=== PATIENT | female | born 1990 | race Caucasian/White ===

== ENCOUNTER → 2018-10-14 13:48 | Outpatient (CLI) | payer OTHER, SELFPAY ==
[2018-10-14 14:48] LABS: hCG Titer Quant., Serum 21141 mIU/mL (1-3)
== END ==
PROVIDERS: Nurse Practitioner Women's Health; Referring Provider Obstetrics & Gynecology; Visit Provider Obstetrics & Gynecology
DX: O20.0 Threatened abortion (principal)
CPT/HCPCS: 36415; 84702

== ENCOUNTER → 2018-11-07 16:22 | Outpatient (CLI) | payer OTHER, SELFPAY ==
[2018-11-07 21:10] LABS: Chlamydia Trachomatis by PCR Negative (Negative); Neisserai gonorrhoeae by PCR Negative (Negative); Probe Check PASS; Sample Adequacy Control PASS; Specimen Processing Control PASS
[2018-11-13 13:35] LABS: HPV Reflexed? NOT INDICATED
== END ==
PROVIDERS: Referring Provider Obstetrics & Gynecology; Visit Provider Obstetrics & Gynecology
DX: Z34.90 Encounter for supervision of normal pregnancy, unspecified, unspecified trimester (principal); Z12.4 Encounter for screening for malignant neoplasm of cervix
CPT/HCPCS: 87077; 87086; 87088; 87491; 87591; 88175; G0145

== ENCOUNTER → 2018-11-09 15:04 | Outpatient (CLI) | payer OTHER, SELFPAY ==
[2018-11-09 15:32] LABS: Absolute Lymphocyte Count 1.54 X10^3/uL (0.83-4.51); Absolute Neutrophil Count 5.1 X10^3/uL (2.0-7.7); Basophil# 0.02 X10^3/uL; Basophil% 0.3 % (0-1); Eosinophil# 0.14 X10^3/uL; Eosinophils% 1.9 % (0-5); Hematocrit 40.5 % (37-47); Hemoglobin 13.4 g/dL (12.0-15.0); Lymphocyte # 1.54 X10^3/ul (4.0); Mean Corp Hgb Conc 33.1 g/dL (32-36); Mean Corpuscular Volume 90.8 fL (81-99); Mean Platelet Vol. 9.6 fl (6.2-12.0); Monocyte# 0.55 X10^3/uL; Monocyte% 7.5 % (0-10); NRBC Flagged by Analyzer 0 % (0-5); Neutrophil # 5.05 X10^3/uL (2.7-7.7); POSITIVE MORPHOLOGY YES; Platelet Count 207 K/mm3 (150-450); RBC Distribution Width CV 12.7 % (11.6-14.6); RBC Distribution Width SD 41.6 fl (35.1-43.9); Red Blood Count 4.46 M/mm3 (4.2-5.4); White Blood Count 7.3 K/mm3 (4.4-11.0)
[2018-11-09 15:34] LABS: Differential Indicated SCAN CRITERIA MET
[2018-11-09 16:00] LABS: Differential Comment SCANNED
[2018-11-09 16:47] LABS: HIV - WCH Non-Reactive (Nonreactive); Hepatitis B Surface Antigen Non-Reactive (Nonreactive)
[2018-11-11 01:39] LABS: Rapid Plasmin Reagin (RPR) NONREACTIVE (NONREACTIVE)
== END ==
PROVIDERS: Referring Provider Obstetrics & Gynecology; Visit Provider Obstetrics & Gynecology
DX: Z34.81 Encounter for supervision of other normal pregnancy, first trimester (principal); Z31.430 Encounter of female for testing for genetic disease carrier status for procreative management
CPT/HCPCS: 85025; 86592; 86703; 86762; 86850; 86900; 86901; 87340

== ENCOUNTER → 2019-03-02 16:27 | Outpatient (CLI) | payer OTHER, SELFPAY ==
[2019-03-02 15:35] VITALS: BMI 20.5
[2019-03-02 17:00] LABS: Absolute Lymphocyte Count 1.45 X10^3/uL (0.83-4.51); Absolute Neutrophil Count 5.8 X10^3/uL (2.0-7.7); Basophil# 0.01 X10^3/uL; Basophil% 0.1 % (0-1); Eosinophil# 0.05 X10^3/uL; Eosinophils% 0.6 % (0-5); Hematocrit 36.7 % (37-47); Hemoglobin 12.2 g/dL (12.0-15.0); Lymphocyte # 1.45 X10^3/ul (4.0); Lymphocyte % 18.4 % (19-41); Mean Corp Hgb Conc 33.2 g/dL (32-36); Mean Corpuscular Hgb 32.4 pg (27.0-32.0); Mean Corpuscular Volume 97.3 fL (81-99); Mean Platelet Vol. 10.2 fl (6.2-12.0); Monocyte# 0.56 X10^3/uL; Monocyte% 7.1 % (0-10); NRBC Flagged by Analyzer 0 % (0-5); Neutrophil # 5.78 X10^3/uL (2.7-7.7); Neutrophil % 73.4 % (47-70); Platelet Count 184 K/mm3 (150-450); RBC Distribution Width CV 13.4 % (11.6-14.6); RBC Distribution Width SD 47.7 fl (35.1-43.9); Red Blood Count 3.77 M/mm3 (4.2-5.4); White Blood Count 7.9 K/mm3 (4.4-11.0)
[2019-03-02 18:09] LABS: Glucose Challenge Gest 1H 50g 86 mg/dL (70-140)
[2019-03-03 08:40] LABS: Hepatitis B Surface Antigen Non-Reactive (Nonreactive)
== END ==
PROVIDERS: Referring Provider Obstetrics & Gynecology; Visit Provider Obstetrics & Gynecology
DX: Z34.90 Encounter for supervision of normal pregnancy, unspecified, unspecified trimester (principal); Z3A.26 26 weeks gestation of pregnancy
CPT/HCPCS: 36415; 82950; 85025; 87340

== ENCOUNTER → 2019-05-19 16:06 | Outpatient (CLI) | payer OTHER, SELFPAY ==
[2019-05-19 14:40] VITALS: BMI 23.0
== END ==
PROVIDERS: Referring Provider Obstetrics & Gynecology; Visit Provider Obstetrics & Gynecology
DX: Z34.90 Encounter for supervision of normal pregnancy, unspecified, unspecified trimester (principal); Z3A.37 37 weeks gestation of pregnancy
CPT/HCPCS: 87081

== ENCOUNTER → 2019-06-08 16:31 | Outpatient (CLI) | payer OTHER, SELFPAY ==
[2019-06-08 09:48] VITALS: BMI 23.0
--- NOTE | 2019-06-08 16:33 | US_ITS ---
STUDY: SECOND AND THIRD TRIMESTER OBSTETRICAL ULTRASOUND - LIMITED REASON FOR EXAM: Female, 28 years old. Small for dates. Growth LMP: August 31, 2018. PRIOR ULTRASOUND: None. TECHNIQUE: Transabdominal TECHNICAL QUALITY: Adequate. FINDINGS: There is a single intrauterine fetus. The fetus is in a cephalic presentation. There is demonstrated cardiac activity with a heart rate of 161 bpm. There is a normal amniotic fluid volume. The largest amniotic fluid pocket measures 4.51 cm. The amniotic fluid index (BROWN) is 11.88 cm. The placenta is fundal and posterior malleoli There are Grade 2 placental changes. The cervix obscured. BIOMETRY: BPD: 9.15 cm: 37 weeks, 1 days HC: 34.16 cm: 39 weeks, 3 days AC: 37.75 cm: 41 weeks, 5 days FL: 7.46 cm: 38 weeks, 2 days Age by LMP: 40 weeks, 1 days. TALIA by LMP: June 07, 2019.. age by current US: 39 weeks, 1 days. TALIA by current US: June 14, 2019. Estimated weight: 3986 grams, +/- 532 grams. US/OB Limited With Biometrics IMPRESSION: 1. Live single intrauterine in 39 weeks 1 day. TALIA is June 14, 2019. 2. EFW of 3986 g. 3. BROWN of 11.8 cm 4. Fundal and posterior placenta. 5. Vertex presentation. Electronically Signed: Chris Noel DO at 17:34 EDT Tel [phone], Service support ,
== END ==
PROVIDERS: Visit Provider Obstetrics & Gynecology
DX: O26.849 Uterine size-date discrepancy, unspecified trimester (principal); Z3A.00 Weeks of gestation of pregnancy not specified
CPT/HCPCS: 76816

== ENCOUNTER 2019-06-14 19:04 | Inpatient (IN) | payer OTHER, SELFPAY ==
[2019-04-20 15:37] VITALS: BMI 23.0
[2019-06-08 09:48] VITALS: BMI 23.0
[2019-06-14] VITALS (25 sets, daily range): BP systolic 115–133; BP diastolic 64–85; PULSE 75–92; TEMP 36.2–37.1; O2SAT 90–100; BMI 23.4
[2019-06-14] MEDS: Lactated Ringers 1,000 ML 50 ML IV (19:45)
[2019-06-14 20:10] LABS: Absolute Lymphocyte Count 1.58 X10^3/uL (0.83-4.51); Absolute Neutrophil Count 7.2 X10^3/uL (2.0-7.7); Basophil# 0.01 X10^3/uL; Basophil% 0.1 % (0-1); Eosinophil# 0.02 X10^3/uL; Eosinophils% 0.2 % (0-5); Hematocrit 39.5 % (37-47); Hemoglobin 13.5 g/dL (12.0-15.0); Lymphocyte # 1.58 X10^3/ul (4.0); Lymphocyte % 16.9 % (19-41); Mean Corp Hgb Conc 34.2 g/dL (32-36); Mean Corpuscular Hgb 31.5 pg (27.0-32.0); Mean Corpuscular Volume 92.1 fL (81-99); Mean Platelet Vol. 11.6 fl (6.2-12.0); Monocyte# 0.54 X10^3/uL; Monocyte% 5.8 % (0-10); NRBC Flagged by Analyzer 0 % (0-5); Neutrophil % 76.8 % (47-70); Platelet Count 196 K/mm3 (150-450); RBC Distribution Width SD 43.5 fl (35.1-43.9); Red Blood Count 4.29 M/mm3 (4.2-5.4); White Blood Count 9.4 K/mm3 (4.4-11.0)
[2019-06-14] MEDS: miSOPROStol 25 MCG TABLET VAGINAL (20:45)
[2019-06-14] MEDS: Lactated Ringers 500 ML 999 ML IV (22:50)
[2019-06-14] MEDS: fentaNYL-bupivacaine (epidural) 100 ML BAG EPIDURAL (23:43)
[2019-06-15] VITALS (29 sets, daily range): BP systolic 102–129; BP diastolic 59–85; PULSE 66–88; RESP 16–18; TEMP 36.4–37; O2SAT 93–99
[2019-06-15] MEDS: Lactated Ringers 500 ML 999 ML IV (00:25)
--- NOTE | 2019-06-15 00:56 | PCM.HPOB.BLA ---
- Problem List (1) Post-dates Status: Acute (2) Gluten intolerance Status: Acute (3) History of depression Status: Acute Comment: no med currently. 2/6 doing well (4) Status: Acute Qualifiers: Comment: declines ntd screen. Genetic low risk, carrier neg. anatomy normal (5) Rubella non-immune status, antepartum Status: Acute Comment: avoidance in preganncy and mmr vaccine (6) Supervision of normal Status: Acute Qualifiers: Comment: PRR TALIA 06/07/19, girl (name surprise), Spouse: Artemio (7) Uterine size-date discrepancy in third trimester Status: Acute Comment: growth us today History and Physical Date of Admission: 06/14/19 Intake Vital Signs 06/08/19 BMI 23.0 06/08/19 Height 5 ft 6.5 in 06/08/19 Weight: 147 lb 06/08/19 BMI 23.3 06/08/19 BP 106/78 01/02/19 BMI 20.5 Intake Visit Reasons: 39 WK OB Chief Complaint: est ob Waxer Required: No Is patient in pain?: No Allergies No Known Allergies Allergy (Verified 06/08/19 09:47) Medications vitamin#30 30 mg iron-10 mg iron-folic acid 1 mg-omg3 capsule cap PO cap 11/07/18 history Confirmed 06/08/19 Last Menstral Period: 08/31/18 Zika: Zika virus screening: Negative : No PFSH PFSH Medical History Dairy product intolerance (Acute) Fibrocystic breast (Acute) Gluten intolerance (Acute) Surgical History H/O wisdom tooth extraction (Acute) History of bunionectomy of both great toes (Resolved) right toe surgery (Resolved) Family History Mother Breast cancer Grandmother Breast cancer Diabetes Grandfather Diabetes Hypertension Social History (Updated 06/08/19 @ 10:[address] 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 OB Visit TALIA Calculator Estimated Delivery Date Method Current WG Current Estimate 06/07/19 LMP (Certain) 40w 1d Other Estimates 06/08/19 Ultrasound #1 40w 0d Expected Delivery Route/Plan Labor Preferences- labor support person: Artemio pain management options preferred: epidural cut cord/dad catch: cord : yes PP control planned: considering IUD discussed possible routes of delivery and associated risks: special requests: Specific Issue/Plans flu vaccine: given tdap vaccine: given rhogam: na LARC form signed: yes movement and labor precautions reviewed. Problem list reviewed and updated with the most current plan of care details and appropriate orders placed. Relevant counseling for the gestational age provided. Continue routine care and follow up unless otherwise noted in visit notes/problem list details Initial Weight: 122 lb Date EGA Weight BP Urine Prot Glucose FHR FuHt Pres Dilation Effaced St Visit Note 12/05/18 13w 5d 125 lb (+3 lb) 120/58 Negative Negative 160 01/02/19 17w 5d 129 lb (+7 lb) 102/62 Negative Negative 150 no vb cramping 02/02/19 22w 1d 129 lb (+7 lb) 98/66 Negative Negative 140 no vb lof good fm no regular ctx 03/02/19 26w 1d 102/62 140 SM- no vb lof good fm no regular ctx. cbc gct tdap 03/23/19 29w 1d 140 lb 2 oz (+18 lb 2 oz) 118/74 152 28 MH-Good FM. No VB, LOF. CB classes scheduled. 04/07/19 31w 2d 141 lb (+19 lb) 118/62 160 31 SM- no vb lof good fm no regular ctx 04/20/19 33w 1d 145 lb (+23 lb) 120/64 Negative Negative 149 05/05/19 35w 2d 145 lb (+23 lb) 98/62 Negative Negative 145 35 SM- no vb lof good fm no regular ctx 05/19/19 37w 2d 144 lb (+22 lb) 110/60 Negative Negative 140 37 Cephalic 1 SM- no vb lof good fm no regular ctx. gbs done 05/26/19 38w 2d 147 lb 8 oz (+25 lb 8 oz) 104/62 Negative Negative 142 37 Cephalic 1 30 -3 MH-No Vb, LOF, reg ctx. Good FM 06/01/19 39w 1d 144 lb (+22 lb) 104/76 Negative Negative 151 38 Cephalic 1 MH-no Vb, LOF, CTX. Good FM 06/08/19 40w 1d 147 lb (+25 lb) 106/78 Negative Negative 135 37 Cephalic 1.5 50 -1 SM- no vb lof good fm no regular ctx, get growth scan today, reviewed fm precautions, if nl plan IOL 41 weeks Notes Visit Date: 06/08/19 ??No visit notes to display Visit Date: 06/01/19 ??No visit notes to display Visit Date: 05/26/19 ??No visit notes to display Visit Date: 05/19/19 ??No visit notes to display Visit Date: 05/05/19 ??No visit notes to display Visit Date: 04/20/19 ??No visit notes to display Visit Date: 04/07/19 ??No visit notes to display Visit Date: 03/23/19 ??No visit notes to display Visit Date: 03/02/19 ??No visit notes to display Visit Date: 02/02/19 ??No visit notes to display Visit Date: 01/02/19 ??no vb cramping ??Holli Desai MD on 01/03/19 Visit Date: 12/05/18 ??No visit notes to display ACOG First Trimester First Trimester: Desire for , Alcohol, Tobacco Cessation, Illicit/Recreational Drug/Substance Use, Intimate Partner Violence, Barriers to care, Unstable Housing, Communication Barriers, Environmental/Work Hazards, Anticipated Course of Care, Toxoplasmosis Precations, Use of Any medications, Sexual activity, Exercise, Dental Care, Sauna/Hot tub use, Seat Belt use, Childbirth classes/Hospital facilities, , Travel, Indications for US and Screening for Aneuploidy Second Trimester Second Trimester: Signs and Symptoms of Labor, Selecting a care provider, Reproductive Life Planning, Care Planning, Depression/Anxiety and Intimate Partner Violence; discussed Tobacco Cessation Third Trimester Third Trimester: Pain Management Plans, Labor support person(s), Immediate Larc, Movement Monitoring, Signs and Symptoms of Preeclampsia, Labor Signs, Feeding Yes , Family Medical Leave or Disability Forms and Depression Diagnostics Diagnostics Diagnostics Glucose 1 Hr 50 gm 86 mg/dL (70-140) 03/02/19 Hgb 12.2 g/dL (12.0-15.0) 03/02/19 Hct 36.7 % (37-47) L 03/02/19 Details: HIV: Urine Culture: Sequential Screen: NIPT Screen: ROS Const Reports system reviewed and no additional complaints, except as docu Card Reports system reviewed and no additional complaints, except as docu Resp Reports system reviewed and no additional complaints, except as docu GI Reports system reviewed and no additional complaints, except as docu, Reports nausea Reports system reviewed and no additional complaints, except as docu Musc Reports system reviewed and no additional complaints, except as docu Exam Const General: cooperative, healthy appearing, comfortable, anxious HENND Head: normal to inspection Nose: external nose normal Face and sinus: normal facial exam Neck Neck: normal visual inspection, full ROM, no lymphadenopathy Thyroid: thyroid normal Chest Chest palpation & inspection: normal inspection of the chest Resp Effort & Inspection: normal respiratory effort GI Inspection: normal to inspection Palpation: soft, other (gravid uterus) Other: vertex and appropriate size for gestational age Other: Cervical Exam: Extrem General: pedal edema Results POC Urinalysis 2 Dip (Clinic) Office Urine Glucose Negative Last Edit by Jeanne Mcclain on 06/08/19 09:49 Office Urine Protein Negative Last Edit by Jeanne Mcclain on 06/08/19 09:49 Assessment & Plan Problems 1. History of depression Z86.59 2. Rubella non-immune status, antepartum O99.89; Z28.3 3. Encounter for supervision of normal first in first trimester Z34.01 4. 40 weeks gestation of Z3A.40 5. Gluten intolerance K90.41 6. Uterine size-date discrepancy in third trimester O26.843 growth us today Patient presents IOL, plan management for , cytotec Pain management: Plans epidural. GBS negative. Management of any complications: None I have reviewed the [facility] and made any clinically relevant updates. Orders Orders: POC Urinalysis 2 Dip (Clinic) Today OB Limited With Biometrics Today O26.849 Coding Level of Care Code OB Routine Diagnoses History of depression Z86.59 Rubella non-immune status, antepartum O99.89; Z28.3 Encounter for supervision of normal first in first trimester Z34.01 ??Normal : normal first ??Trimester: first trimester 40 weeks gestation of Z3A.40 ??Weeks of gestation: 40 weeks Gluten intolerance K90.41 Uterine size-date discrepancy in third trimester O26.843 UPDATE- I have seen the patient and performed any clinically relevant updates to the history and physical exam. Holli Desai MD Essential Procedure Criteria Procedure Essential: Yes Criteria Note: On 05/02/2019 the [facility] ([facility]) Public Order signed by [facility] Director Valerie Devries M.D., regarding the Management of Non-Essential Surgeries and Procedures for the purpose of preserving Personal Protective Equipment (PPE) and critical hospital capacity and resources within [place] went into effect as of 05/03/2019 at 5:00PM. According to the [facility] Public Order: This action will remain in full force and effect until the State of Emergency declared by the Governor no longer exists or the Director of the [facility] rescinds or modifies this Order.. This [facility] order stated all non-essential or elective surgeries and procedures that utilize PPE should be delayed unless there is undue risk to the current or future health of a patient. After reviewing the aforementioned [facility] Public Order and the patients clinical case, I have determined that the scheduled procedure meets the criteria to go forward. Risk to Patient if Procedure Delayed: Threat of permanent dysfunction of an extremity or organ if delayed
--- NOTE | 2019-06-15 00:59 | OP.PCM_ITS ---
Problem List (1) Post-dates Status: Acute (2) Gluten intolerance Status: Acute (3) History of depression Status: Acute Comment: no med currently. 2/6 doing well (4) Status: Acute Qualifiers: Comment: declines ntd screen. Genetic low risk, carrier neg. anatomy normal (5) Rubella non-immune status, antepartum Status: Acute Comment: avoidance in preganncy and mmr vaccine (6) Supervision of normal Status: Acute Qualifiers: Comment: PRR TALIA 06/07/19, girl (name surprise), Spouse: Artemio (7) Uterine size-date discrepancy in third trimester Status: Acute Comment: growth us today Vaginal Delivery Maternal Presentation: Medically Indicated Induction iol postdates 41 weeks Method of Induction: Cytotec Medical Reason for Induction: Post term Amniotic Membrane Rupture Type: Artificial Amniotic Fluid Description: Clear Final TALIA: 06/07/19 Gestational age: 41 Weeks and 1 Days Date of Procedure: 06/15/19 Pre-Operative Diagnosis: iol postdates Post-Operative Diagnosis: same Surgery/ Procedure Performed: Spontaneous Vaginal Delivery Type of Anesthesia: Epidural Description of Procedure: Patient began pushing and delivered the head in the [ROSITA] presentation. The head was delivered atraumatically. The anterior and posterior shoulders delivered without complication followed by the rest of the and the infant was placed on the maternal abdomen. Delayed cord clamping was employed for approximately 60 seconds. Cord was clamped and cut and gentle traction was applied to the cord and the placenta delivered spontaneously immediately following it was noted to be intact with three-vessel cord. The perineum and vagina were inspected and noted to have a second-degree perineal laceration and a small laceration on the right labia. Both were repaired in the usual fashion with 3-0 Vicryl rapide. EBL was 400 cc. Patient and tolerated delivery well. Presentation: ROSITA Placental Delivery Description: Spontaneous Placenta Disposition: [facility] Cord Vessel Description: 3 Vessels Cord Entanglement: None Estimated Blood Loss: 400 A gender: Female Episiotomy Description: None Laceration: Perineal Extension/lac, 2nd degree Medications given after delivery: IV Pitocin Complications: None Multi Select Codes - Urinary/Genital Urinary/Genital CPT Codes: 81033 Vaginal Delivery [facility]
[2019-06-15] MEDS: Oxytocin 30 units/NS 500 ml 30 UNITS/500 ML IV.SOLN 334 UNITS IV (01:31)
[2019-06-15] MEDS: 0.9% Saline Lock 10 ML Syringe IV (04:09)
[2019-06-15] MEDS: Naproxen 250 MG Tablet 500 MG PO ×2 (09:52→22:56)
--- NOTE | 2019-06-15 12:56 | DCINST_ITS ---
Discharge Diet: No Restrictions Discharge Activity: Return to Normal Activity, May not drive while taking narcotic pain medications., May Shower May resume sexual activity in: 4-6 weeks Call your doctor if your incision/area has: Continuous Slow Oozing, Sudden Increased Bleeding, Increased Pain/ Swelling, Increased Redness, Foul Smelling Discharge Additional Instructions: If you experience any of the following, contact your healthcare provider. * Bleeding that soaks a pad every hour for 2 hours * Fever 100.4 or higher * Unrelieved incision or abdominal pain * Swelling, redness, discharge or bleeding from your incision or episiotomy site * Your incision begins to separate * Problems urinating (including inability to urinate or burning while urinating). * Visual changes * Severe headache * Flu-like symptoms * Pain or redness in one of both of your breasts * Pain, warmth, tenderness or swelling in your legs, especially the calf area * Frequent nausea and vomiting * Symptoms of depression or anxiety If you experience any of the following, call 911 or go to the nearest Emergency Room. * Chest pain * Problems breathing * Seizure activity * Partial or complete paralysis of a body part, slurred speech, weakness or drooping of the face, or a sudden inability to walk or hold your balance Allergies/Adverse Reactions: Allergies No Known Allergies Allergy (Verified 06/14/19 19:34) Medications to take at Discharge vitamin#30 30 mg iron-10 mg iron-folic acid 1 mg-omg3 capsule 1 cap PO DAILY cap 11/07/18 Please Follow Up With: Holli Desai MD - [phone] When: Call to make an appointment with your doctor in 6 weeks. If you had elevated Blood pressure or 4th degree laceration you will need to be seen in 2 weeks. Primary Care Physician: Care Physician,No Primary [Primary Care Provider] - Test Results: Test results from this visit will be discussed in further detail at your follow- up appointment, if applicable.
--- NOTE | 2019-06-15 12:56 | PCM.DCVAG ---
Discharge Diet: No Restrictions Discharge Activity: Return to Normal Activity, May not drive while taking narcotic pain medications., May Shower May resume sexual activity in: 4-6 weeks Call your doctor if your incision/area has: Continuous Slow Oozing, Sudden Increased Bleeding, Increased Pain/ Swelling, Increased Redness, Foul Smelling Discharge Additional Instructions: If you experience any of the following, contact your healthcare provider. Bleeding that soaks a pad every hour for 2 hours Fever 100.4 or higher Unrelieved incision or abdominal pain Swelling, redness, discharge or bleeding from your incision or episiotomy site Your incision begins to separate Problems urinating (including inability to urinate or burning while urinating). Visual changes Severe headache Flu-like symptoms Pain or redness in one of both of your breasts Pain, warmth, tenderness or swelling in your legs, especially the calf area Frequent nausea and vomiting Symptoms of depression or anxiety If you experience any of the following, call 911 or go to the nearest Emergency Room. Chest pain Problems breathing Seizure activity Partial or complete paralysis of a body part, slurred speech, weakness or drooping of the face, or a sudden inability to walk or hold your balance Allergies/Adverse Reactions: Allergies No Known Allergies Allergy (Verified 06/14/19 19:34) Medications to take at Discharge vitamin#30 30 mg iron-10 mg iron-folic acid 1 mg-omg3 capsule 1 cap PO DAILY cap 11/07/18 Please Follow Up With: Holli Desai MD - [phone] When: Call to make an appointment with your doctor in 6 weeks. If you had elevated Blood pressure or 4th degree laceration you will need to be seen in 2 weeks. Primary Care Physician: Care Physician,No Primary [Primary Care Provider] - Test Results: Test results from this visit will be discussed in further detail at your follow-up appointment, if applicable.
[2019-06-16] VITALS (7 sets, daily range): BP systolic 102–128; BP diastolic 56–84; PULSE 70–96; RESP 16–18; TEMP 36.3–36.8; O2SAT 98
--- NOTE | 2019-06-16 07:54 | PCM.PN.OB ---
Patient Problems: Active and Suspected Problems (Last Reviewed 06/08/19 @ 09:47 by Jeanne Mcclain) Post-dates (Acute) Subjective: doing well no complaints pain controlled no CP SOB N V ambulating well tolerating po lochia moderate, going well - Physical Exam Vitals/I&O's: Vital Signs Temp Pulse Resp BP Pulse Ox 97.6 F L 96 16 128/84 H 96 06/16/19 01:20 06/16/19 01:20 06/16/19 01:20 06/16/19 01:20 06/15/19 16:51 Oxygen Delivery Method Room Air Weight: 147 lb 7.828 oz Body Mass Index (BMI) 23.4 Intake and Output for Last 24 Hours 06/14/19 06/15/19 06/16/19 23:59 23:59 23:59 Intake Total 952.24 / 952.24 1078.69 / 1078.69 Output Total 400 / 400 900 / 900 Balance 552.24 / 552.24 178.69 / 178.69 General: Alert, Oriented x3 Current Medications Acetaminophen (Tylenol) 1,000 mg PO Q8H PRN PRN PRN Reason: Pain Score 1-3/10 Bisacodyl (Dulcolax) 10 mg RECTAL UD PRN PRN Reason: If no BM Dibucaine (Dibucaine) 1 applic TOPICAL TID PRN PRN; Protocol PRN Reason: Discomfort Hydrocortisone (Hytone) 1 applic TOPICAL TID PRN PRN; Protocol PRN Reason: Discomfort Methylergonovine Maleate (Methergine) 0.2 mg IM X1 PRN PRN Reason: Excess bleeding/uterine atony Naproxen (Naprosyn) 500 mg PO Q8H PRN PRN PRN Reason: Pain Score 1-3/10 Last Admin: 06/15/19 22:56 Dose: 500 mg Documented by: Ondansetron HCl (Zofran) 4 mg IV Q4H PRN PRN PRN Reason: Nausea Oxycodone HCl (Oxyir) 5 - 10 mg PO Q4H PRN PRN PRN Reason: Pain Score 4-10/10 Senna/Docusate Sodium (Senokot-S, Sahara-Colace) 1 - 2 tablet PO DAILY PRN PRN PRN Reason: Constipation Simethicone (Mylicon) 80 mg PO PCHS PRN PRN Reason: Indigestion/Stomach pain Sodium Chloride () 5 - 15 ml IV UD PRN PRN Reason: SALINE FLUSH Last Admin: 06/15/19 04:09 Dose: 10 ml Documented by: Medical Necessity - Tobacco Use Smoking Status: Never smoker Assessment/Plan All Active Problems (Last Reviewed 06/08/19 @ 09:47 by Jeanne Mcclain) Post-dates (Acute) Uterine size-date discrepancy in third trimester (Acute) History of depression (Acute) Rubella non-immune status, antepartum (Acute) Supervision of normal (Acute) (Acute) Gluten intolerance (Acute) 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 routine post delivery care 2. breast feeding- support given 3. rh positive 4. rubella non immune- give mmr
== END 2019-06-16 13:20 | disposition home or self-care (01) | DRG 806 ==
PROVIDERS: Admitting Provider Obstetrics & Gynecology; Referring Provider Obstetrics & Gynecology; Visit Provider Obstetrics & Gynecology
DX: O48.0 Post-term pregnancy (principal); K90.41 Non-celiac gluten sensitivity; Z37.0 Single live birth; O70.1 Second degree perineal laceration during delivery; O99.62 Diseases of the digestive system complicating childbirth; O26.843 Uterine size-date discrepancy, third trimester; Z3A.41 41 weeks gestation of pregnancy; O99.89 Other specified diseases and conditions complicating pregnancy, childbirth and the puerperium; Z28.3 Underimmunization status; Z86.59 Personal history of other mental and behavioral disorders
CPT/HCPCS: 59025; 59050; 85025; 86850; 86900; 86901; 99218; J7120; A4216; G0378

== ENCOUNTER 2019-06-19 14:30 | Outpatient (CLI) | payer OTHER, SELFPAY ==
[2019-06-14 19:29] VITALS: BMI 23.4
== END 2019-06-19 15:15 | disposition home or self-care (01) ==
LOC: WPOUT 15:11 → WP 15:11
PROVIDERS: Referring Provider Obstetrics & Gynecology; Visit Provider Obstetrics & Gynecology
DX: O92.79 Other disorders of lactation (principal)
CPT/HCPCS: 96158; 96159

== ENCOUNTER → 2019-07-28 12:16 | Outpatient (CLI) | payer OTHER, SELFPAY ==
[2019-07-28 11:53] VITALS: BMI 23.4
[2019-07-28 13:28] LABS: Absolute Lymphocyte Count 2.37 X10^3/uL (0.83-4.51); Absolute Neutrophil Count 5.1 X10^3/uL (2.0-7.7); Basophil# 0.03 X10^3/uL; Basophil% 0.4 % (0-1); Eosinophil# 0.17 X10^3/uL; Hematocrit 43.8 % (37-47); Hemoglobin 13.9 g/dL (12.0-15.0); Lymphocyte # 2.37 X10^3/ul (4.0); Lymphocyte % 28.5 % (19-41); Mean Corp Hgb Conc 31.7 g/dL (32-36); Mean Corpuscular Hgb 30.7 pg (27.0-32.0); Mean Corpuscular Volume 96.7 fL (81-99); Mean Platelet Vol. 10.8 fl (6.2-12.0); Monocyte# 0.62 X10^3/uL; Monocyte% 7.5 % (0-10); NRBC Flagged by Analyzer 0 % (0-5); Neutrophil # 5.09 X10^3/uL (2.7-7.7); Neutrophil % 61.2 % (47-70); Platelet Count 227 K/mm3 (150-450); RBC Distribution Width CV 11.9 % (11.6-14.6); RBC Distribution Width SD 42.5 fl (35.1-43.9); Red Blood Count 4.53 M/mm3 (4.2-5.4); White Blood Count 8.3 K/mm3 (4.4-11.0)
[2019-07-28 13:56] LABS: hCG Titer Quant., Serum 3 mIU/mL (1-3)
== END ==
PROVIDERS: Referring Provider Obstetrics & Gynecology; Visit Provider Obstetrics & Gynecology
DX: N93.9 Abnormal uterine and vaginal bleeding, unspecified (principal)
CPT/HCPCS: 36415; 84443; 84702; 85025

== ENCOUNTER → 2019-08-23 16:25 | Outpatient (CLI) | payer OTHER, SELFPAY ==
[2019-07-28 11:53] VITALS: BMI 23.4
--- NOTE | 2019-08-23 16:26 | US_ITS ---
STUDY: ULTRASOUND OF THE FEMALE PELVIS - COMPLETE REASON FOR EXAM: Female, 28 years old. AUB SINCE GIVING LMP: Unknown TECHNIQUE: Transabdominal and Transvaginal TECHNICAL QUALITY: Adequate. COMPARISON: None. FINDINGS: The uterus is retroverted and is in a midline position. The uterus measures 7 cm x 6 cm x 4.3 cm. Normal uterine cervix. The endometrium measures 7 mm in thickness, and is hyperechoic. There is a 1.2 cm x 1.4 cm x 0.7 cm echogenic density in the superior aspect of the endometrium. This may represent retained product of conception. There is no demonstrated myometrial mass. I.U.D. - The patient does not have an I.U.D. The right ovary is visualized. The right ovary measures 2.8 cm x 2.8 cm x 1.8 cm. There is no right ovarian cyst or ovarian mass. There is no visualized right adnexal mass or complex lesion. There is normal arterial and normal venous vascularity. The left ovary is visualized. The left ovary measures 3.6 cm x 2.7 cm, 1.8 cm. There is no left ovarian cyst or ovarian mass. There is no visualized left adnexal mass or complex lesion. There is normal arterial and normal venous vascularity. There is no fluid in the cul-de-sac. The pre void volume of the bladder was 286 ml. Polycystic ovary disease: No. US/Transvaginal Non- IMPRESSION: 1.2 cm x 1.4 cm x 0.7 cm echogenic density in the endometrium as described. Retained products of conception should be ruled out. Electronically Signed: Ye Foy, at 12:35 EDT , Service support ,
--- NOTE | 2019-08-23 16:26 | US_ITS ---
STUDY: ULTRASOUND OF THE FEMALE PELVIS - COMPLETE REASON FOR EXAM: Female, 28 years old. AUB SINCE GIVING LMP: Unknown TECHNIQUE: Transabdominal and Transvaginal TECHNICAL QUALITY: Adequate. COMPARISON: None. FINDINGS: The uterus is retroverted and is in a midline position. The uterus measures 7 cm x 6 cm x 4.3 cm. Normal uterine cervix. The endometrium measures 7 mm in thickness, and is hyperechoic. There is a 1.2 cm x 1.4 cm x 0.7 cm echogenic density in the superior aspect of the endometrium. This may represent retained product of conception. There is no demonstrated myometrial mass. I.U.D. - The patient does not have an I.U.D. The right ovary is visualized. The right ovary measures 2.8 cm x 2.8 cm x 1.8 cm. There is no right ovarian cyst or ovarian mass. There is no visualized right adnexal mass or complex lesion. There is normal arterial and normal venous vascularity. The left ovary is visualized. The left ovary measures 3.6 cm x 2.7 cm, 1.8 cm. There is no left ovarian cyst or ovarian mass. There is no visualized left adnexal mass or complex lesion. There is normal arterial and normal venous vascularity. There is no fluid in the cul-de-sac. The pre void volume of the bladder was 286 ml. Polycystic ovary disease: No. US/Pelvic (Non ) IMPRESSION: 1.2 cm x 1.4 cm x 0.7 cm echogenic density in the endometrium as described. Retained products of conception should be ruled out. Electronically Signed: Ye Foy, at 12:35 EDT , Service support ,
== END ==
PROVIDERS: Referring Provider Obstetrics & Gynecology; Visit Provider Obstetrics & Gynecology
DX: N93.9 Abnormal uterine and vaginal bleeding, unspecified (principal)
CPT/HCPCS: 76830; 76856

== ENCOUNTER → 2019-08-25 16:58 | Outpatient (CLI) | payer OTHER, SELFPAY ==
[2019-08-25 16:46] VITALS: BMI 19.2
--- NOTE | 2019-08-25 16:58 | EMB_PTH ---
PATIENT: LAUREN PARSONS LOC: [facility] U#:[id number] AGE/SX: 34/F ROOM: RE08/25/[address]: Dr. Holli Desai MD : 1990 BED: DIS: SPEC #: [id number] RECD: 08/25/19 17:02 STATUS: GEOVANNA JUAN #: [id number] LEIGHANN: 08/25/19 16:[address]: Holli Desai DEPT: SURGICAL PATHOLOGY RECD BY: Avelino Amaya ENTERED: 08/28/19 08:52 SP TYPE: ENDOM BX/C JANESSA DR: No Primary Care Phys Tissues: Endometrium, NOS Procedures: Surgery Specimen Level IV HEADER OPERATION: Endometrial PRE-OP DIAGNOSIS: Abnormal uterine bleeding TISSUE SUBMITTED: Endometrial lining MICROSCOPIC DIAGNOSIS Endometrial biopsy: Disordered proliferative endometrium. Chronic endometritis. Fragments of hyalinized decidual tissue and villi with focal calcifications and degenerative changes, consistent with retained placental tissue. SJ:kelly 08/29/19 COMMENT Case has been reviewed in consultation with Dr. Grijalva who concurs with the above diagnosis. IDC:AM MICROSCOPIC DESCRIPTION Slides are reviewed. GROSS DESCRIPTION Received is one container labeled with the patient's name and not further designated. The specimen consists of multiple irregular fragments of light mendoza soft tissue that in aggregate measure 2 x 2 x <0.1 cm. The specimen is totally submitted in one cassette. / AM:kelly 08/28/19 TC:5 CPT: 89549
== END ==
PROVIDERS: Visit Provider Obstetrics & Gynecology
DX: N71.1 Chronic inflammatory disease of uterus (principal); N93.9 Abnormal uterine and vaginal bleeding, unspecified
CPT/HCPCS: 88305

== ENCOUNTER → 2019-08-29 18:36 | Outpatient (CLI) | payer OTHER, SELFPAY ==
[2019-08-25 16:46] VITALS: BMI 19.2
--- NOTE | 2019-08-29 18:40 | US_ITS ---
STUDY: ULTRASOUND OF THE FEMALE PELVIS - COMPLETE REASON FOR EXAM: Female, 28 years old. Abnormal uterine bleeding. Follow-up. LMP: June 15, 2019. TECHNIQUE: Transabdominal and Transvaginal TECHNICAL QUALITY: Adequate. COMPARISON: August 23, 2019. FINDINGS: The uterus is retroverted and is in a midline position. The uterus measures 7.8 x 5.2 x 4.0 cm. Normal uterine cervix. The endometrium measures 4 mm in thickness, and is hyperechoic. An echogenic focus in the superior aspect of the endometrium which may represent a mass. This measures 1.2 x 1.5 x 0.5 cm. There is no demonstrated myometrial mass. I.U.D. - The patient does not have an I.U.D. The right ovary is visualized. The right ovary measures 2.4 x 2.2 x 1.6 cm. There are multiple follicles of the right ovary without a dominant cyst. There is no visualized right adnexal mass or complex lesion. There is normal arterial and normal venous vascularity. The left ovary is visualized. The left ovary measures 2.4 x 1.9 x 1.4 cm. There are multiple follicles of the left ovary without a dominant cyst. There is no visualized left adnexal mass or complex lesion. There is normal arterial and normal venous vascularity. There is no fluid in the cul-de-sac. The pre void volume of the bladder was ml. The post void volume of the bladder was ml. Polycystic ovary disease: No. US/Pelvic (Non ) IMPRESSION: 1. Echogenic area in the fundal endometrium. This appears essentially unchanged from prior study. 2. Otherwise normal pelvic ultrasound. Electronically Signed: Chris Noel DO at 19:54 EDT Tel [phone], Service support ,
--- NOTE | 2019-08-29 18:52 | US_ITS ---
STUDY: ULTRASOUND OF THE FEMALE PELVIS - COMPLETE REASON FOR EXAM: Female, 28 years old. Abnormal uterine bleeding. Follow-up. LMP: June 15, 2019. TECHNIQUE: Transabdominal and Transvaginal TECHNICAL QUALITY: Adequate. COMPARISON: August 23, 2019. FINDINGS: The uterus is retroverted and is in a midline position. The uterus measures 7.8 x 5.2 x 4.0 cm. Normal uterine cervix. The endometrium measures 4 mm in thickness, and is hyperechoic. An echogenic focus in the superior aspect of the endometrium which may represent a mass. This measures 1.2 x 1.5 x 0.5 cm. There is no demonstrated myometrial mass. I.U.D. - The patient does not have an I.U.D. The right ovary is visualized. The right ovary measures 2.4 x 2.2 x 1.6 cm. There are multiple follicles of the right ovary without a dominant cyst. There is no visualized right adnexal mass or complex lesion. There is normal arterial and normal venous vascularity. The left ovary is visualized. The left ovary measures 2.4 x 1.9 x 1.4 cm. There are multiple follicles of the left ovary without a dominant cyst. There is no visualized left adnexal mass or complex lesion. There is normal arterial and normal venous vascularity. There is no fluid in the cul-de-sac. The pre void volume of the bladder was ml. The post void volume of the bladder was ml. Polycystic ovary disease: No. US/Transvaginal Non- IMPRESSION: 1. Echogenic area in the fundal endometrium. This appears essentially unchanged from prior study. 2. Otherwise normal pelvic ultrasound. Electronically Signed: Chris Noel DO at 19:54 EDT Tel [phone], Service support ,
== END ==
PROVIDERS: Visit Provider Obstetrics & Gynecology
DX: N93.9 Abnormal uterine and vaginal bleeding, unspecified (principal)
CPT/HCPCS: 76830; 76856

== ENCOUNTER 2019-08-31 09:37 | Day surgery (SDC) | payer OTHER, SELFPAY ==
[2019-08-25 16:46] VITALS: BMI 19.2
--- NOTE | 2019-08-31 09:05 | HP.PCM_ITS ---
- Problem List (1) bleeding Status: Acute (2) Retained products of conception Status: Acute History and Physical Date of Admission: 08/31/19 Intake Vital Signs 07/28/19 Height 5 ft 6.5 in 07/28/19 Weight: 120 lb 6 oz 07/28/19 BMI 19.1 07/28/19 BP 118/78 HPI: 28 yo presents with persistent pp bleeding and reatined POC. 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 Is patient in pain?: No Allergies No Known Allergies Allergy (Verified 07/28/19 11:53) Medications vitamin#30 30 mg iron-10 mg iron-folic acid 1 mg-omg3 capsule 1 cap PO DAILY cap 11/07/18 [History Confirmed 07/28/19] : Yes [facility] Medical History Dairy product intolerance (Acute) Fibrocystic breast (Acute) Gluten intolerance (Acute) Surgical History H/O wisdom tooth extraction (Acute) History of bunionectomy of both great toes (Resolved) right toe surgery (Resolved) Family History Mother Breast cancer Grandmother Breast cancer Diabetes Grandfather Diabetes Hypertension Social History (Updated 07/29/19 @ 05:[address] 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 Date Name GA/Weeks Outcome Route Bth Weight Infant Gen Labor Lgth Anesthesia Del Locatn Provider FOB 06/15/19 Case 41 live - full term Female epidural [facility] Delivery Date: 06/15/19 On 06/15/19 @ 08:56 Laura Lopes IOL POST DATES Depression Screen PHQ-2/9 PHQ-2 Over the last 2 weeks, how often have you been bothered by any of the following problems? 1. Little interest or pleasure in doing things: not at all 2. Feeling down, depressed, or hopeless: not at all Total score: 0 If score is 2 or greater, continue Source: Developed by Drs. Jeffy Mcmanus, Felipa Tolentino, Jaya Lane and colleagues, with an educational charles from [employer]. Scoring: Total Score Depression Severity Action 1-4 Minimal depression No action needed 5-9 Mild depression Repeat PHQ-9 at follow up 10-14 Moderate depression Make tx plan,consider counseling, fup, prescription 15-19 Moderately severe depression Prescribe drugs and counseling immediately 20-27 Severe depression If poor response, refer pt to mental health specialist Post HPI 6 WK PP, still deciding about IUD: Details: LAUREN PARSONS is a 28 year old who presents for her post visit. Infant Feeding: Breast Menses resumed: No [place] since delivery: No Emotional Support: Yes ROS Const Reports system reviewed and no additional complaints, except as docu GI Reports system reviewed and no additional complaints, except as docu, Denies bloating, Denies constipation, Denies nausea, Denies vomiting Reports system reviewed and no additional complaints, except as docu, Denies abnormal vaginal bleeding, Denies pelvic pain, Denies sexual problems, Denies urinary incontinence, Denies urinary hesitancy, Denies urinary urgency, Denies vaginal discharge Skin/Breast Reports system reviewed and no additional complaints, except as docu, Reports as per HPI Psych Reports as per HPI Exam Const General: cooperative, healthy appearing, comfortable, no acute distress HENMT Head: normal to inspection Neck Neck: normal visual inspection, no lymphadenopathy Thyroid: thyroid normal Chest Breast inspection: normal inspection of the breasts, normal inspection of the ax illae Breast palpation: normal palpation of the breasts, normal palpation of the axillae Resp Effort & Inspection: normal respiratory effort GI Inspection: normal to inspection Palpation: soft, no hepatosplenomegaly, nontender General: bladder normal to palpation External Female Exam: normal external appearance, normal appearance of the urethra Urethra: normal appearance of the urethra Speculum Exam - Vagina: normal appearance of the vagina, normal vaginal discharge Speculum Exam - Cervix: normal appearance of the cervix Bimanual Exam- Vagina & Uterus: normal bimanual exam, uterine size normal, bladder normal to palpation, uterine shape normal, uterus non-tender Bimanual Exam- Adnexa, other: normal adnexae, pelvic support normal Pelvic Support: normal Skin General: no rashes or lesions noted Assessment & Plan Problems bleeding suspect retained products of conception recommend suction d and c After discussing the patient's diagnosis and treatment plan options, patient w ishes to proceed with surgical management. I have discussed with the patient the risks, benefits, and alternatives of the procedure which include but are not limited to risks of anesthesia, bleeding, infection, possible damage to bowel, bladder, or surrounding vasculature which could lead to additional surgery to evaluate any complications. Patient agrees to procedure and wishes to proceed. ACOG/uptodate references given for additional information regarding procedure. Orders Orders: Thyroid Stim Hormone (TSH) 07/28/19 N93.9 CBC W/Diff, Automated 07/28/19 N93.9 hCG Titer Quant., Serum 07/28/19 N93.9 Coding Level of Care Code No Charge Diagnoses care and examination Z39.2
[2019-08-31 10:11] LABS: Hematocrit 42.4 % (37-47); Hemoglobin 13.6 g/dL (12.0-15.0); Mean Corp Hgb Conc 32.1 g/dL (32-36); Mean Corpuscular Hgb 30.2 pg (27.0-32.0); Mean Corpuscular Volume 94.2 fL (81-99); Mean Platelet Vol. 9.8 fl (6.2-12.0); Platelet Count 206 K/mm3 (150-450); RBC Distribution Width CV 11.7 % (11.6-14.6); RBC Distribution Width SD 40.2 fl (35.1-43.9); White Blood Count 5.7 K/mm3 (4.4-11.0)
[2019-08-31 10:19] VITALS: BP 105/72; PULSE 75; RESP 15; TEMP 36.8; O2SAT 100; BMI 19.1
[2019-08-31] MEDS: Lactated Ringers 1,000 ML 100 ML IV (10:29)
[2019-08-31 10:40] LABS: Internal QC Validated? YES +Cl - CLEAR BKGD; Pregnancy, Urine Negative Negative
--- NOTE | 2019-08-31 11:00 | POC_PTH ---
PATIENT: LAUREN PARSONS LOC: [facility] [place] U#:[id number] AGE/SX: 28/F ROOM: RE08/31/[address]: Dr. Holli Desai MD : 1990 BED: DIS: 08/31/2019 SPEC #: [id number] RECD: 08/31/19 13:27 STATUS: GEOVANNA JUAN #: [id number] LEIGHANN: 08/31/19 11:[address]: Holli Desai DEPT: SURGICAL PATHOLOGY RECD BY: Avelino Amaya ENTERED: 08/31/19 13:36 SP TYPE: PROD CONC OTHR DR: No Primary Care Phys Tissues: Product of conception, NOS Procedures: Surgery Specimen Level IV HEADER OPERATION: Suction dilation and curettage PRE-OP DIAGNOSIS: Retained POC TISSUE SUBMITTED: Retained products of conception MICROSCOPIC DIAGNOSIS Endometrium, curettage: Autolyzed chorionic villi with dystrophic microcalcifications. Proliferative endometrium with chronic endometritis. See comment. AM:kelly 09/04/19 COMMENT The findings are consistent with retained products of conception. Clinical correlation is suggested. MICROSCOPIC DESCRIPTION Slides are reviewed. GROSS DESCRIPTION Received in fixative is one container labeled with the patient's name and designated retained tissue products of conception. The specimen consists of multiple fragments of hemorrhagic soft tissue that in aggregate measure 5 x 3 x 0.3 cm. No tissue is identified. The specimen is totally submitted in two cassettes. / SJ:kelly 09/01/19 TC:3 CPT: 52856
[2019-08-31 11:35] VITALS: BP 101/67; BP 105/72; PULSE 72; RESP 16; TEMP 36.9; O2SAT 99
[2019-08-31 11:40] VITALS: BP 102/69; BP 105/72; PULSE 74; RESP 16; O2SAT 100
[2019-08-31 11:45] VITALS: BP 105/72; BP 98/68; PULSE 75; RESP 16; O2SAT 98
[2019-08-31 11:50] VITALS: BP 105/72; BP 113/68; PULSE 73; RESP 16; TEMP 37.1; O2SAT 100
--- NOTE | 2019-08-31 11:51 | PCM.OPRPT ---
Problem List (1) bleeding Status: Acute (2) Retained products of conception Status: Acute Report of Operation Date of Procedure: 08/31/19 Pre-Operative Diagnosis: retained POC Post-Operative Diagnosis: same Surgery/Procedure Performed:: suction d and c Description of Surgical Findings:: 8 cm uterus with nodular piece of tissue in lining Type of Anesthesia:: Local MAC Specimen's removed: retained placenta Drains: none Estimated Blood Loss (mL): 50 Fluids Replaced: crystalloid Description of Procedure: Patient was taken to the operating room and placed under MAC local anesthesia. She was prepped and draped in the normal sterile fashion the dorsal lithotomy position. Bladder was drained of clear urine and anterior lip of the cervix was grasped and the uterus sounded to 8. Cervix was progressively dilated to allow passage of a 7 suction curette. Progressive passes were made removing the retained products of conception without complication. Sharp curettage confirmed complete removal of the retained products. bedside abdominal us also performed to confirm. All instruments were removed from the vagina and excellent hemostasis was noted and the patient was taken to recovery in stable condition. - Complications none - Admit VTE Documentation VTE Present on Admission: No Multi Select Codes - Urinary/Genital Urinary/Genital CPT Codes: 94682 Curettage,
--- NOTE | 2019-08-31 12:05 | DCINST_ITS ---
Discharge Diet: No Restrictions Discharge Activity: Return to Normal Activity, May Shower, May Take a Tub Bath Allergies/Adverse Reactions: Allergies No Known Allergies Allergy (Verified 08/31/19 10:18) Medications to take at Discharge Multivitamin 1 ea PO DAILY 08/30/19 doxycycline monohydrate 100 mg tablet 100 mg PO BID #20 tab 08/30/19 Primary Care Physician: Care Physician,No Primary [Primary Care Provider] - Test Results: Test results from this visit will be discussed in further detail at your follow- up appointment, if applicable. Please Follow Up With: Holli Desai MD - [phone]
[2019-08-31 12:14] VITALS: BP 105/72
== END 2019-08-31 12:35 | disposition home or self-care (01) ==
LOC: SDC 09:38 → AC 09:39
PROVIDERS: Anesthesiology; Referring Provider Obstetrics & Gynecology; Visit Provider Obstetrics & Gynecology
PROC: (CPT 59160; principal; 2019-08-31 10:45)
DX: O72.2 Delayed and secondary postpartum hemorrhage (principal); Z11.59 Encounter for screening for other viral diseases
CPT/HCPCS: 59160; 36415; 81025; 85027; 86850; 86900; 86901; 87635; 88305; G2023; J7120; U0003

== ENCOUNTER → 2019-09-04 12:16 | Outpatient (CLI) | payer OTHER, SELFPAY ==
[2019-08-31 10:19] VITALS: BMI 19.1
[2019-09-04 12:30] LABS: Absolute Neutrophil Count 2.9 X10^3/uL (2.0-7.7); Basophil# 0.02 X10^3/uL; Basophil% 0.4 % (0-1); Eosinophil# 0.16 X10^3/uL; Eosinophils% 2.8 % (0-5); Hemoglobin 12.7 g/dL (12.0-15.0); Lymphocyte % 37.2 % (19-41); Mean Corp Hgb Conc 32.6 g/dL (32-36); Mean Corpuscular Hgb 30.4 pg (27.0-32.0); Mean Corpuscular Volume 93.3 fL (81-99); Mean Platelet Vol. 10.1 fl (6.2-12.0); Monocyte# 0.44 X10^3/uL; Monocyte% 7.8 % (0-10); NRBC Flagged by Analyzer 0 % (0-5); Neutrophil # 2.92 X10^3/uL (2.7-7.7); Neutrophil % 51.6 % (47-70); Platelet Count 210 K/mm3 (150-450); RBC Distribution Width CV 11.7 % (11.6-14.6); RBC Distribution Width SD 40.2 fl (35.1-43.9); Red Blood Count 4.18 M/mm3 (4.2-5.4); White Blood Count 5.7 K/mm3 (4.4-11.0)
== END ==
PROVIDERS: Referring Provider Obstetrics & Gynecology; Visit Provider Obstetrics & Gynecology
DX: N94.6 Dysmenorrhea, unspecified (principal); N97.9 Female infertility, unspecified; N91.1 Secondary amenorrhea
CPT/HCPCS: 36415; 85025

== ENCOUNTER → 2020-09-03 10:46 | Outpatient (CLI) | payer OTHER, SELFPAY ==
[2020-08-09 11:16] VITALS: BMI 19.1
[2020-09-03 11:38] LABS: hCG Titer Quant., Serum 26 mIU/mL (1-3)
== END ==
PROVIDERS: Referring Provider Nurse Practitioner Women's Health; Visit Provider Nurse Practitioner Women's Health
DX: N92.6 Irregular menstruation, unspecified (principal)
CPT/HCPCS: 36415; 84702

== ENCOUNTER → 2020-09-05 10:57 | Outpatient (CLI) | payer OTHER, SELFPAY ==
[2020-08-09 11:16] VITALS: BMI 19.1
[2020-09-05 11:49] LABS: hCG Titer Quant., Serum 47 mIU/mL (1-3)
== END ==
PROVIDERS: Referring Provider Nurse Practitioner Women's Health; Visit Provider Nurse Practitioner Women's Health
DX: N92.6 Irregular menstruation, unspecified (principal)
CPT/HCPCS: 36415; 84702

== ENCOUNTER → 2020-09-09 11:24 | Outpatient (CLI) | payer OTHER, SELFPAY ==
[2020-08-09 11:16] VITALS: BMI 19.1
[2020-09-09 12:37] LABS: hCG Titer Quant., Serum 53 mIU/mL (1-3)
== END ==
PROVIDERS: Referring Provider Obstetrics & Gynecology; Visit Provider Obstetrics & Gynecology
DX: N91.2 Amenorrhea, unspecified (principal)
CPT/HCPCS: 36415; 84702

== ENCOUNTER → 2020-09-11 11:41 | Outpatient (CLI) | payer OTHER, SELFPAY ==
[2020-08-09 11:16] VITALS: BMI 19.1
[2020-09-11 12:26] LABS: hCG Titer Quant., Serum 58 mIU/mL (1-3)
== END ==
PROVIDERS: PCP Internal Medicine; Referring Provider Obstetrics & Gynecology; Visit Provider Obstetrics & Gynecology
DX: N91.2 Amenorrhea, unspecified (principal)
CPT/HCPCS: 36415; 84702

== ENCOUNTER → 2020-10-14 11:04 | Outpatient (CLI) | payer OTHER, SELFPAY ==
[2020-10-14 11:51] LABS: hCG Titer Quant., Serum 214 mIU/mL (1-3)
== END ==
PROVIDERS: PCP Internal Medicine; Referring Provider Obstetrics & Gynecology; Visit Provider Obstetrics & Gynecology
DX: O03.9 Complete or unspecified spontaneous abortion without complication (principal)
CPT/HCPCS: 36415; 84702

== ENCOUNTER → 2020-10-16 11:27 | Outpatient (CLI) | payer OTHER, SELFPAY ==
[2020-10-16 12:37] LABS: hCG Titer Quant., Serum 536 mIU/mL (1-3)
== END ==
PROVIDERS: Nurse Practitioner Women's Health; PCP Internal Medicine; Referring Provider Obstetrics & Gynecology; Visit Provider Obstetrics & Gynecology
DX: N91.2 Amenorrhea, unspecified (principal)
CPT/HCPCS: 36415; 84702

== ENCOUNTER → 2020-10-22 10:44 | Outpatient (CLI) | payer OTHER, SELFPAY ==
[2020-10-22 12:01] LABS: hCG Titer Quant., Serum 4231 mIU/mL (1-3)
== END ==
PROVIDERS: PCP Internal Medicine; Referring Provider Obstetrics & Gynecology; Visit Provider Obstetrics & Gynecology
DX: Z34.90 Encounter for supervision of normal pregnancy, unspecified, unspecified trimester (principal)
CPT/HCPCS: 36415; 84702

== ENCOUNTER → 2020-11-13 13:39 | Outpatient (CLI) | payer OTHER, SELFPAY ==
[2020-11-13 13:56] LABS: Absolute Lymphocyte Count 1.54 X10^3/uL (0.83-4.51); Absolute Neutrophil Count 6.3 X10^3/uL (2.0-7.7); Basophil# 0.02 X10^3/uL; Basophil% 0.2 % (0-1); Eosinophil# 0.03 X10^3/uL; Eosinophils% 0.4 % (0-5); Hematocrit 41.3 % (37-47); Hemoglobin 13.6 g/dL (12.0-15.0); Lymphocyte # 1.54 X10^3/ul (0.83-4.51); Lymphocyte % 18.2 % (19-41); Mean Corp Hgb Conc 32.9 g/dL (32-36); Monocyte# 0.56 X10^3/uL; Monocyte% 6.6 % (0-10); NRBC Flagged by Analyzer 0 % (0-5); Neutrophil # 6.29 X10^3/uL (2.7-7.7); Neutrophil % 74.4 % (47-70); Platelet Count 204 K/mm3 (150-450); RBC Distribution Width CV 12.5 % (11.6-14.6); RBC Distribution Width SD 41.1 fl (35.1-43.9); Red Blood Count 4.54 M/mm3 (4.2-5.4); White Blood Count 8.5 K/mm3 (4.4-11.0)
[2020-11-13 15:13] LABS: HIV - WCH Non-Reactive (Nonreactive); Hepatitis B Surface Antigen Non-Reactive (Nonreactive); Hepatitis C Antibody Non-Reactive (Nonreactive); Rubella IgG Reactive (Nonreactive); Syphilis Antibodies Non-reactive
[2020-11-13 17:28] LABS: Amphetamine Urine VISTA NEGATIVE (<1000 ng/mL); Barbiturate Urine VISTA NEGATIVE (< 200 ng/mL); Benzodiazepine Urine VISTA NEGATIVE (< 200 ng/mL); Cocaine Urine VISTA NEGATIVE (< 300 ng/mL); Ecstacy Urine VISTA NEGATIVE (< 500 ng/mL); Methadone Urine VISTA NEGATIVE (< 300 ng/mL); PCP Urine VISTA NEGATIVE (< 25 ng/mL); THC Urine VISTA NEGATIVE (< 50 ng/mL); Vista UDS pH Range 5
[2020-11-16 03:07] LABS: Chlamydia By Nucleic Acid AMP Negative (Negative)
[2020-11-16 12:49] LABS: Gonococcus By Nucleic Acid AMP Negative (Negative)
== END ==
PROVIDERS: PCP Internal Medicine; Referring Provider Obstetrics & Gynecology; Visit Provider Obstetrics & Gynecology
DX: Z34.80 Encounter for supervision of other normal pregnancy, unspecified trimester (principal)
CPT/HCPCS: 36415; 80307; 85025; 86703; 86762; 86780; 86803; 86850; 86900; 86901; 87086; 87088; 87340; 87491; 87591

== ENCOUNTER 2021-03-26 15:33 | Outpatient (CLI) | payer OTHER, SELFPAY ==
[2021-03-26 15:46] LABS: Absolute Lymphocyte Count 1.28 X10^3/uL (0.83-4.51); Absolute Neutrophil Count 5.2 X10^3/uL (2.0-7.7); Basophil# 0.01 X10^3/uL; Basophil% 0.1 % (0-1); Eosinophil# 0.04 X10^3/uL; Eosinophils% 0.6 % (0-5); Hematocrit 34.9 % (37-47); Hemoglobin 12.1 g/dL (12.0-15.0); Lymphocyte # 1.28 X10^3/ul (0.83-4.51); Lymphocyte % 18.2 % (19-41); Mean Corp Hgb Conc 34.7 g/dL (32-36); Mean Corpuscular Hgb 32.5 pg (27.0-32.0); Mean Corpuscular Volume 93.8 fL (81-99); Mean Platelet Vol. 10.3 fl (6.2-12.0); Monocyte# 0.44 X10^3/uL; Monocyte% 6.2 % (0-10); NRBC Flagged by Analyzer 0 % (0-5); Neutrophil # 5.24 X10^3/uL (2.7-7.7); Neutrophil % 74.3 % (47-70); Platelet Count 181 K/mm3 (150-450); RBC Distribution Width CV 12.9 % (11.6-14.6); RBC Distribution Width SD 44.3 fl (35.1-43.9); Red Blood Count 3.72 M/mm3 (4.2-5.4); White Blood Count 7.1 K/mm3 (4.4-11.0)
[2021-03-26 16:02] LABS: Glucose Challenge Gest 1H 50g 88 mg/dL (70-140)
== END 2021-03-26 23:59 | disposition home or self-care (01) ==
LOC: PAVLAB 15:34
PROVIDERS: Obstetrics & Gynecology; PCP Internal Medicine; Referring Provider Obstetrics & Gynecology; Visit Provider Obstetrics & Gynecology
DX: Z34.80 Encounter for supervision of other normal pregnancy, unspecified trimester (principal)
CPT/HCPCS: 36415; 82950; 85025

== ENCOUNTER 2021-04-23 14:03 | Outpatient (CLI) | payer OTHER, SELFPAY ==
--- NOTE | 2021-04-23 14:08 | US_ITS ---
STUDY: SECOND AND THIRD TRIMESTER OBSTETRICAL ULTRASOUND - LIMITED REASON FOR EXAM: Female, 30 years old growth -- 32 weeks -- covid LMP: 09/11/2020. PRIOR ULTRASOUND: None. TECHNIQUE: Transabdominal TECHNICAL QUALITY: Adequate. FINDINGS: There is a single intrauterine fetus. The fetus is in a cephalic presentation. There is demonstrated cardiac activity with a heart rate of 143 bpm. There is a normal amniotic fluid volume. The largest amniotic fluid pocket measures 6.48 cm. The amniotic fluid index (BROWN) is 16.3 cm. The placenta is posterior in location and is not low lying. There are Grade 1 placental changes. The cervix measures 4.84 cm in length. BIOMETRY: BPD: 7.9 cm: 31 weeks, 4 days HC: 29.19 cm: 32 weeks, 1 days AC: 29.07 cm: 33 weeks, 0 days FL: 5.93 cm: 30 weeks, 6 days Age by LMP: 32 weeks, 0 days. TALIA by LMP: 06/19/2019. age by current US: 31 weeks, 4 days. TAILA by current US: 06/21/2021. Estimated weight: 1947 grams, +/- 292 grams, 49 percentile. US/OB Limited With Biometrics IMPRESSION: Single live intrauterine gestation with a mean gestational age of 31 weeks and 4 days. Electronically Signed: Ye Foy MD at 13:38 EST ,
== END 2021-04-23 23:59 | disposition home or self-care (01) ==
PROVIDERS: PCP Internal Medicine; Referring Provider Obstetrics & Gynecology; Visit Provider Obstetrics & Gynecology
DX: U07.1 COVID-19 (principal)
CPT/HCPCS: 76816

== ENCOUNTER 2021-05-21 13:44 | Outpatient (CLI) | payer OTHER, SELFPAY ==
--- NOTE | 2021-05-21 13:45 | US_ITS ---
STUDY: SECOND AND THIRD TRIMESTER OBSTETRICAL ULTRASOUND REASON FOR EXAM: Female, 30 years old growth -- 36 weeks LMP: 09/11/2020. TECHNIQUE: Transabdominal TECHNICAL QUALITY: Adequate. PRIOR ULTRASOUND: Comparison is made with prior study dated 04/23/2021. FINDINGS: There is a single intrauterine fetus. The fetus is in a cephalic presentation. There is demonstrated cardiac activity with a heart rate of 148 bpm. There is a normal amniotic fluid volume. The largest amniotic fluid pocket measures 4.5 cm. The amniotic fluid index (BROWN) is 11.1 cm. The placenta is fundal in location. There are Grade 1 placental changes. The cervix measures 3.5 cm in length. The adnexal regions are not visualized. BIOMETRY: BPD: 8.55 cm: 34 weeks, 3 days HC: 31.29 cm: 35 weeks, 0 days AC: 33.45 cm: 37 weeks, 2 days FL: 6.65 cm: 30 weeks, 1 days CI: 81% FL/BPD: 78% FL/HC: FL/AC: 20% HC/AC: 0.94 age by current US: 34 weeks, 6 days. TALIA by current US: 06/26/2021. Estimated weight: 2864 grams, +/- 430 grams, 55 %. age by prior US: 35 weeks, 4 days. TALIA by prior US: 06/21/2021. Age by LMP: 36 weeks, 0 days. TALIA by LMP: 06/18/2021. US/OB Limited With Biometrics IMPRESSION: Single live uterine gestation with mean gestational age of 35 weeks and 4 days. The measurements obtained today fall within normal expected range. Electronically Signed: Ye Foy MD at 15:03 EDT ,
== END 2021-05-21 23:59 | disposition home or self-care (01) ==
LOC: US 13:44
PROVIDERS: PCP Internal Medicine; Visit Provider Obstetrics & Gynecology
DX: Z34.80 Encounter for supervision of other normal pregnancy, unspecified trimester (principal)
CPT/HCPCS: 76816; 87081

== ENCOUNTER 2021-06-08 18:34 | Inpatient (IN) | payer OTHER, SELFPAY ==
[2021-06-08 18:52] VITALS: BMI 24.3
[2021-06-08 19:09] LABS: ROM Internal Control Test YES-OK TO RESULT pt. (Internal QC)
[2021-06-08 19:14] LABS: ROM Patient Test POSITIVE (Negative)
[2021-06-08 19:20] VITALS: BP 119/71; PULSE 83; TEMP 36.7
[2021-06-08] MEDS: Lactated Ringers 1,000 ML 50 ML IV (19:30)
[2021-06-08 19:43] LABS: Absolute Lymphocyte Count 1.55 X10^3/uL (0.83-4.51); Absolute Neutrophil Count 6.2 X10^3/uL (2.0-7.7); Basophil# 0.01 X10^3/uL; Basophil% 0.1 % (0-1); Eosinophil# 0.02 X10^3/uL; Eosinophils% 0.2 % (0-5); Hematocrit 37.2 % (37-47); Lymphocyte # 1.55 X10^3/ul (0.83-4.51); Lymphocyte % 18.5 % (19-41); Mean Corp Hgb Conc 32.3 g/dL (32-36); Mean Corpuscular Hgb 28.4 pg (27.0-32.0); Mean Corpuscular Volume 87.9 fL (81-99); Mean Platelet Vol. 11.6 fl (6.2-12.0); Monocyte# 0.55 X10^3/uL; Monocyte% 6.6 % (0-10); NRBC Flagged by Analyzer 0 % (0-5); Neutrophil % 74.2 % (47-70); Platelet Count 170 K/mm3 (150-450); RBC Distribution Width SD 44.8 fl (35.1-43.9); Red Blood Count 4.23 M/mm3 (4.2-5.4); White Blood Count 8.4 K/mm3 (4.4-11.0)
--- NOTE | 2021-06-08 19:52 | HP.PCM.OB_ITS ---
HPI - General General Date of Admission: 06/08/21 HPI Narrative LAUREN PARSONS, is a 30 y/o @ 38 weeks 4 days who presents to labor and delivery with leaking fluid. She denies vaginal bleeding or dec fm. Maternal Data Information TALIA Calculator Estimated Delivery Date Method Current WG Current Estimate 06/18/21 LMP (Certain) 38w 4d PFSH PFSH Medical History Complete miscarriage Dairy product intolerance Fibrocystic breast Gluten intolerance Lab test positive for detection of COVID-19 virus Home Medications multivitamin 1 ea PO DAILY 08/30/19 [History Last Taken Unknown] sertraline 100 mg PO DAILY 06/08/21 [History Last Taken Unknown] Allergy/AdvReac Type Severity Reaction Status Date / Time No Known Allergies Allergy Verified 06/08/21 18:54 Family History Mother Breast cancer Grandmother Breast cancer Diabetes Grandfather Diabetes Hypertension Surgical History H/O wisdom tooth extraction History of bunionectomy of both great toes History of dilation and curettage right toe surgery Social History household members: family housing: house number of children: 1 current occupational status: employed Smoking Status: Never smoker alcohol intake: never substance use type: does not use caffeine: No what type of physical activity do you participate in: walking frequency: 3-4 times per week seatbelt use: always do you feel safe at home: Yes 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 Date Name GA/Weeks Outcome Route Bth Weight Infant Gen Labor Lgth Anesthesia Del Locatn Provider FOB 06/15/19 Case 41 live - full term Female epi dural [facility] Delivery Date: 06/15/19 IOL POST DATES Laura Lopes Visit Details Expected Delivery Route/Plan Labor Preferences- CB/BF classes: no labor support person: Artemio labor intervention preferences: [] pain management options preferred: epidural cut cord/dad catch: no : yes PP control planned: discussed discussed possible routes of delivery and associated risks: [] special requests: [] Plans Covid: received vaccine Flu vaccine: given Tdap vaccine: given Rhogam: NA LARC form signed: yes Problem list reviewed and updated with the most current plan of care details and appropriate orders placed. Relevant counseling for the gestational age provided. Continue routine care and follow up unless otherwise noted in visit notes/problem list details OB Flowsheet Initial Weight: 121 lb Date -?-?-?-?-?-?-?-?-?-?-?-?- EGA Weight BP Urine Prot -?-?-?-?-?-?-?-?-?-?-?-?- Glucose FHR FuHt Pres Dilation -?-?-?-?-?-?-?-?-?-?-?-?- Effaced St Visit Note 11/13/20 -?-?-?-?-?-?-?-?-?-?-?-?- 9w 0d 121 lb 8 oz (+8 oz) 100/70 -?-?-?-?-?-?-?-?-?-?-?-?- 175 -?-?-?-?-?-?-?-?-?-?-?-?- SM- no vb crampi ng 12/09/20 -?-?-?-?-?-?-?-?-?-?-?-?- 12w 5d 126 lb (+5 lb) 110/76 -?-?-?-?-?-?-?-?-?-?-?-?- 160 -?-?-?-?-?-?-?-?-?-?-?-?- SM- SM- no vb cramping 12/25/20 -?-?-?-?-?-?-?-?-?-?-?-?- 15w 0d 128 lb (+7 lb) 110/70 Negative -?-?-?-?-?-?-?-?-?-?-?-?- Negative 150 -?-?-?-?-?-?-?-?-?-?-?-?- SM- no vb lof cr amping, got moderna vaccine yesterday wanted to hear heart tones for reassurment 01/06/21 -?-?-?-?-?-?-?-?-?-?-?-?- 16w 5d 127 lb 4 oz (+6 lb 4 oz) 100/58 Negative -?-?-?-?-?-?-?-?-?-?-?-?- Negative 155 -?-?-?-?-?-?-?-?-?-?-?-?- JV- no lof, vagi nal bleeding, or spotting. will get anatomy scan 01/23, 2nd covid vaccine 01/21. plan for flu vaccine next visit. 02/03/21 -?-?-?-?-?-?-?-?-?-?-?-?- 20w 5d 132 lb 8 oz (+11 lb 8 oz) 110/70 Negative -?-?-?-?-?-?-?-?-?-?-?-?- Negative 150 -?-?-?-?-?-?-?-?-?-?-?-?- SM- no vb lof go od fm no regular ctx 02/17/21 -?-?-?-?-?-?-?-?-?-?-?-?- 22w 5d 137 lb 6 oz (+16 lb 6 oz) 110/68 Negative -?-?-?-?-?-?-?-?-?-?-?-?- Negative 145 22 -?-?-?-?-?-?-?-?-?-?-?-?- SM- co lower abd ominal discomfort intermittent on both sides, no vb no dysuria. 03/26/21 -?-?-?-?-?-?-?-?-?-?-?-?- 28w 0d 140 lb 4 oz (+19 lb 4 oz) 120/60 Negative -?-?-?-?-?-?-?-?-?-?-?-?- Negative 150 27 -?-?-?-?-?-?-?-?-?-?-?-?- JV- no lof, vagi nal bleeding, or dec fm. 04/10/21 -?-?-?-?-?-?-?-?-?-?-?-?- 30w 1d 141 lb (+20 lb) 100/58 Negative -?-?-?-?-?-?-?-?-?-?-?-?- Negative 156 29 -?-?-?-?-?-?-?-?-?-?-?-?- MH-No Vb, LOF. G ood FM. Has growth US 32 and 36wk scheduled. Larc 04/24/21 -?-?-?-?-?-?-?-?-?-?-?-?- 32w 1d 144 lb 8 oz (+23 lb 8 oz) 110/70 Negative -?-?-?-?-?-?-?-?-?-?-?-?- Negative 149 32 Cephalic -?-?-?-?-?-?-?-?-?-?-?-?- JV- no lof, vagi nal bleeding, or dec fm.normal 32 week growth scan. results reviewed with patient. 05/08/21 -?-?-?-?-?-?-?-?-?-?-?-?- 34w 1d 145 lb (+24 lb) 102/62 Negative -?-?-?-?-?-?-?-?-?-?-?-?- Negative 140 34 Cephalic -?-?-?-?-?-?-?-?-?-?-?-?- SM- no vb lof go od fm no regular ctx 05/21/21 -?-?-?-?-?-?-?-?-?-?-?-?- 36w 0d 149 lb 2 oz (+28 lb 2 oz) 110/68 Negative -?-?-?-?-?-?-?-?-?-?-?-?- Negative 129 35 Cephalic 0 -?-?-?-?-?-?-?-?-?-?-?-?- 50 JV- grow th scan 55th% today normal BROWN no lof, vaginal bleeding, or dec fm. 05/29/21 -?-?-?-?-?-?-?-?-?-?-?-?- 37w 1d 148 lb 8 oz (+27 lb 8 oz) 110/60 Negative -?-?-?-?-?-?-?--?-?-?-?-?- Negative 153 36 Cephalic 1 -?-?-?-?-?-?-?-?-?-?-?-?- 50 -3 -No Vb, LOF. No CTX. Good Fm. 06/05/21 -?-?-?-?-?-?-?-?-?-?-?-?- 38w 1d 151 lb 2 oz (+30 lb 2 oz) 118/60 Negative -?-?-?-?-?-?-?-?-?-?-?-?- Negative 145 37 Cephalic 1 -?-?-?-?-?-?-?-?-?-?-?-?- 50 -3 JV- no lof , vaginal bleeding or dec fm 06/08/21 -?-?-?-?-?-?-?-?-?-?-?-?- 38w 4d 150 lb 9.211 oz (+29 lb 9.211 oz) 119/71 -?-?-?-?-?-?-?-?-?-?-?-?- -?-?-?-?-?-?-?-?-?-?-?-?- ROS Constitutional Constitutional: Denies change in weight, fatigue, fever(s), headache(s), poor appetite or weakness Eyes Eyes: Denies blurry vision, change in vision, seeing flashes or spots in vision ENT HEENT: Denies dizziness, headache(s), loss taste/smell or sore throat Cardiovascular Cardiovascular: Denies chest pain, dizziness, dyspnea, irregular heart rhythm, leg edema, palpitations, rapid heart rate or vomiting Respiratory/Chest Respiratory/Chest: Denies chest tightness, cough, dyspnea or breast pain Gastrointestinal Gastrointestinal: Denies abdominal pain, anorexia, constipation, cramping, diarrhea, hemorrhoids, vomiting or weight changes Genitourinary Genitourinary: Denies dysuria, flank pain, genital lesions, genital pain, urinary frequency or urinary urgency Musculoskeletal Musculoskeletal: Denies back pain, difficulty walking, joint pain, limited range of motion, muscle cramps or numbness Integumentary Integumentary: Denies lesions or unusual bruising Neurologic Neurologic: Denies abnormal movements, abnormal speech, dizziness, numbness, seizure-like activity or syncope Psychiatric Psychiatric: Denies anxiety, behavioral changes, change in appetite, change in libido, cognitive impairment, confusion, depression, difficulty concentrating, hallucinations or suicidal thoughts Endocrine Endocrinology: Denies excessive sweating, polydipsia or polyuria Hematologic/Lymphatic Hematologic/Lymphatic: Denies easy bleeding, easy bruising or lymphadenopathy Allergic/Immunologic Allergic/Immunologic: Denies itchy eyes, lip swelling, seasonal rhinorrhea, rhinitis, throat swelling, tongue swelling, eczemia, wheezing or asthma Vital Signs Vital Signs Vital Signs: 06/08/21 19:20 Temperature 98.0 F Temperature Source Temporal Pulse Rate 83 Blood Pressure 119/71 BP Systolic 119 BP Diastolic 71 Weight Weight: 150 lb 9.211 oz Body Mass Index (BMI) 24.3 Physical Exam Const alert, oriented x3, no apparent distress and healthy appearing General Appearance: cooperative; Negative for anxious HEENT normocephalic Face and Sinus: normal facial exam Eyes EOMs intact bilaterally and no scleral icterus General Eye: normal appearance of both eyes Neck full ROM and supple Lymph Lymphatic: no lymphadenopathy noted Chest Chest: abnormal inspection of the chest Resp normal respiratory effort Effort and Inspection: able to speak in complete sentences Cardio regular rate GI soft to palpation and non-tender Inspection: gravid Palpation: soft; Negative for tender external exam normal Amniotic Fluid: ROM+plus Back/Spine no CVA tenderness Extremity normal to inspection, full ROM and no clubbing, cyanosis or edema General Extremity: Negative for calf tenderness or edema Skin Lesions: no lesions Rashes: no rashes Psych mental status grossly normal Labs Labs Labs: Blood Type O POSITIVE Antibody Screen NEGATIVE Hct 37.2 % (37-47) Hgb 12.0 g/dL (12.0-15.0) Obstetrics US Syphilis Total Ab Non-reactive Rubella IgG Antibody Reactive (Nonreactive) Hep Bs Antigen Non-Reactive (Nonreactive) Chlamydia DNA (BAILEE) Negative (Negative) Neisseria gonorrhoeae DNA (BAILEE) Negative (Negative) HIV 1&2 Antibody Non-Reactive (Nonreactive) Glucose 1 Hr 50 gm 88 mg/dL (70-140) Rhogam given: No Miscellaneous Test Assessment & Plan (1) Lab test positive for detection of COVID-19 virus: COMMENT: baby asa and scans 32 and 36, / nl growth (2) : QUALIFIERS: Weeks of gestation: 38 weeks Qualified Code(s): Z3A.38 - 38 weeks gestation of COMMENT: declines ntd, carrier and genetic testing. nl anatomy (3) Supervision of other normal : COMMENT: PRR TALIA: 06/18/21 boy- Edward (secret)PC: Case Spouse: Artemio (4) History of depression: COMMENT: andreoft 03/23 doing well PLAN: Patient presents PROM plan is to start with cytotec then progress to pitocin as needed Pain management: plans epidural. GBS negative . Management of any complications: none I have reviewed the [facility] and made any clinically relevant updates.
[2021-06-08] MEDS: miSOPROStol 25 MCG TABLET PO (20:27)
[2021-06-09] VITALS (64 sets, daily range): BP systolic 87–137; BP diastolic 50–77; PULSE 65–151; RESP 16; TEMP 36.1–36.8; O2SAT 82–100
[2021-06-09] MEDS: miSOPROStol 25 MCG TABLET PO (00:21)
[2021-06-09] MEDS: Lactated Ringers 500 ML 999 ML IV ×2 (01:50→06:08)
[2021-06-09] MEDS: fentaNYL-bupivacaine (epidural) 100 ML BAG EPIDURAL (02:42)
[2021-06-09] MEDS: Lactated Ringers 1,000 ML 200 ML IV (05:35)
[2021-06-09] MEDS: Oxytocin 30 units/NS 500 ml 30 UNITS/500 ML IV.SOLN 334 UNITS IV (07:08)
[2021-06-09] MEDS: Methylergonovine 0.2 MG/ML Ampul IM (07:13)
--- NOTE | 2021-06-09 07:42 | EX.PCM.OBRPT ---
Maternal Data Information TALIA Calculator Estimated Delivery Date Method Current WG Current Estimate 06/18/21 LMP (Certain) 38w 5d Vaginal Delivery Maternal Presentation Maternal Presentation: - (premature rupture of membranes ) Maternal Presentation: pt presented with SROM without contractions or dilation at 6 pm on 06/08/21 Type of Induction: Cytotec Operative Information Date of Procedure: 06/09/21 Pre-Operative Diagnosis: 38 weeks 5 days PROM, bradycardia Post-Operative Diagnosis: 38 weeks 5 days PROM, bradycardia Surgery / Procedure Performed: Vacuum Assisted Vaginal Delivery Estimated Blood Loss: 300cc Findings Description of Procedure: Patient began pushing and delivered the head in the ROSITA presentation. The heart rate dropped to the 60's for 2 minuted and she was poorly pushing. The patient was consented on vacuum extraction and agreed to proceed. A kiwi vacuum was applied to the head at a +3 station. With one pull the 's head was delivered. The vacuum was then released. The anterior and posterior shoulders delivered without complication followed by the rest of the infant and the infant was placed on the maternal abdomen. Delayed cord clamping was employed for approximately 60 seconds. Cord was clamped and cut and gentle traction was applied to the cord and the placenta delivered spontaneously immediately following it was noted to be intact with three-vessel cord. The perineum and vagina were inspected and noted to have a 1st degree perineal laceration that was repaired with a 3-0 vicryl rapide suture. EBL was 60cc. Patient and infant tolerated delivery well. Presentation: Vertex Amniotic Fluid Description: Clear Placental Delivery Description: Spontaneous Placenta Disposition: [facility] Cord Vessel Description: 3 Vessels Cord Entanglement: None Infant A Gender: Male (1 minute): 8 (5 minute): 9 Delayed Cord Clamping: Yes Post Vaginal Delivery Medications Given After Delivery: IV Pitocin and IM Methergin Episiotomy Description: None Laceration: 1st degree Complication Complications: None Multi Select Codes Urinary/Genital Urinary/Genital CPT Codes: 74358 Vaginal Delivery global pkg (vacuum extraction )
--- NOTE | 2021-06-09 09:38 | NURSING ---
Report given to Allyssa PRIETO, taking over pt and care at this time.
[2021-06-09] MEDS: Ibuprofen 600 MG Tablet PO ×2 (11:44→17:30)
[2021-06-09] MEDS: Sertraline 100 MG Tablet PO (11:45)
[2021-06-10] MEDS: Ibuprofen 600 MG Tablet PO (00:17)
[2021-06-10 00:20] VITALS: BP 103/65; PULSE 73; RESP 16; TEMP 36.5; O2SAT 98
[2021-06-10 03:35] VITALS: BP 98/57; PULSE 66; RESP 18; TEMP 36.6; O2SAT 97
--- NOTE | 2021-06-10 07:20 | NURSING ---
bedside report given to Juan Kirk RN who is assuming care of pt at this time
[2021-06-10 07:26] VITALS: BP 100/63; PULSE 67; RESP 18; TEMP 36.1; O2SAT 98
--- NOTE | 2021-06-10 07:42 | PCM.PN.OB ---
Subjective Subjective Patient doing well without complaints. Tolerating PO. Ambulating and voiding without difficulty. Feeding well. Denies chest pain, shortness of breath, calf pain/swelling, fevers, chills, lightheadedness. Objective Data Objective Data Vital Signs: Vital Signs Temp Pulse Resp BP Pulse Ox 97 F L 67 18 100/63 98 06/10/21 07:26 06/10/21 07:26 06/10/21 07:26 06/10/21 07:26 06/10/21 07:26 Oxygen Delivery Method Room Air Weight: 150 lb 9.211 oz Body Mass Index (BMI) 24.3 Intake & Output: Intake and Output for Last 24 Hours 06/08/21 06/09/21 06/10/21 23:59 23:59 23:59 Intake Total 2763.71 / 2763.71 Output Total 1000 / 1000 Balance 1763.71 / 1763.71 Lab / Micro Data Result Diagrams: 06/08/21 19:30 Micro: Microbiology 06/08/21 19:45 Nasal Secretion SARS-CoV-2 Antigen (Rapid) - Final Physical Exam Const alert and oriented x3 HEENT normocephalic Eyes PERRL Neck full ROM Resp normal respiratory effort GI soft to palpation GI Narrative: FF below U Assessment & Plan (1) Status post vacuum-assisted vaginal delivery: COMMENT: boy/Edward 06/09/21 - JV terminal bradycarida PLAN: s/p PPD # 1 1. routine post delivery care 2. breast feeding- support given 3. rh positive 4. rubella immune 5. home today
[2021-06-10] MEDS: Sertraline 100 MG Tablet PO (09:55)
--- NOTE | 2021-06-10 12:23 | CHAPLAIN ---
Type of Pastoral Visit _x__ Initial Visit ___ Follow-up Visit ___ On-call Visit ___ General Patient Visit ___ Spiritual Assessment ___ Family Conference ___ Bereavement ___ Rapid Response ___ Code Blue ___ Other (describe below) Pastoral Care Referral From _x__ Patient _x__ Family ___ Nurse ___ Physician ___ Trailer Mechanic ___ Mixed Signal Design Engineer ___ Other (describe below) Sacrament/Intervention _x__ Active listening ___ Anointing ___ Confucianism ___ Bereavement ___ Communion ___ Georgie exploration ___ ___ Life review _x__ Prayer ___ Reconciliation ___ Sacrament of Sick _x__ Supportive presence ___ Wedding ___ Other (describe below) Pastoral Comments
[2021-06-10 12:50] VITALS: BP 94/63; PULSE 78; RESP 16; TEMP 36.6
--- NOTE | 2021-06-10 16:00 | CASEMGMT ---
Social Work Brief Assessment Labor and Delivery Unit Patient Address:[address] [place] [address] Phone number: [phone] Date of Referral/Notification: 06.09.2021 Time of Referral: [phone] Referred By: Dr. Gomez Date of Intervention: 06.10.2021 Reason for Referral: maternal history of prepartum depression Informant: Medical record and mother of baby (MOB) Susie Daniel; father of baby (FOB) Artemio Daniel present for part of conversation. History: RUCHI is a 30 year old female, to the FOB Artemio. During private conversation with MOB, the MOB denied any history of domestic or intimate partner violence. MOB and FOB now have 2 children together. Daughter Kraina born on 06.15.2019 and baby boy, Edward Daniel, born on 06.09.2020. care adequate for this , no concerns identified. Edward's birthweight 7 pounds 11 ounces. 8 and 9. MOB is staying at home to care for children and FOB works outside the home as a mechanical engineering lecturer. MOB reports good support from FOB, MOB's mom, and MOB's sister. No identified concerns about substance use or abuse. Maternal drug screen negative on 11.13.2020. MOB does endorse history of depression and depression. Has been on Zoloft and feels this medication is helpful. Plans to stay on this in the timeframe. History of counseling at [facility] with Syeda Law and would return to counseling if needed in the future. PHQ9 completion this date a score of 2, showing minimal to no current depressive symptoms. Assessment: Met with MOB and FOB in room together and then alone with the MOB for completion of the PHQ9 (also addressed DV/IPV). MOB and FOB both presented as comfortable with each other, discussing maternal history of PPD. MOB able to identify coping skills to manage stress, and awareness of the importance of self care. MOB reports is accepting that medication helps MOB's mood and plans to remain on this in the timeframe. MOB reports to have adequate support from family, and FOB is able to take some time off of work to help at home. No concerns with housing, transportation, finances reported or endorsed. MOB reports to feel a connection to the baby. Observed both parents to be hands on and attentive to the . There have been no identified concerns by nursing regarding parent/child interactions or bonding. Provided parents with packet on mood and anxiety disorders, reviewing risk factors and that both mothers and fathers are at risk. Emotional support and reflection offered, reinforcing the positive that MOB is practicing self-care and excepting of seeking out support should mood issues arise and become distressing. Parents deny any concerns for home-going at this point. Both aware of shaken baby prevention and safe sleeping. Note the symptoms MOB endorsed on the PHQ-9 were trouble falling asleep and feeling tired, which MOB actually related to the end of rather than mood issues. MOB's affect bright, good eye contact, his conversation during social work intervention. Plan: MOB and will discharge home, with resource provided to the family for mood and anxiety disorders. No further needs requested or indicated. -MATEO Goldman, ROOSEVELT *This note was generated with [employer] dictation software. It may contain incorrect words, spelling, and punctuation that were not noted in review of the chart prior to signing*
== END 2021-06-10 13:25 | disposition home or self-care (01) | DRG 807 ==
LOC: WPOUT 18:35 → WP 18:35
PROVIDERS: Admitting Provider Obstetrics & Gynecology; PCP Internal Medicine; Visit Provider Obstetrics & Gynecology
DX: O76 Abnormality in fetal heart rate and rhythm complicating labor and delivery (principal); Z37.0 Single live birth; O42.92 Full-term premature rupture of membranes, unspecified as to length of time between rupture and onset of labor; O70.0 First degree perineal laceration during delivery; Z86.16 Personal history of COVID-19; Z3A.38 38 weeks gestation of pregnancy; Z86.59 Personal history of other mental and behavioral disorders
CPT/HCPCS: 59025; 59050; 84112; 85025; 86850; 86900; 86901; 87426; 99218; J7120; G0378

== ENCOUNTER → 2021-10-07 | Outpatient (CLI) | payer OTHER, SELFPAY ==
[2021-10-07 13:57] LABS: NATERA MAILED SPECIMEN
== END | disposition home or self-care (01) ==
LOC: PAVLAB 11:17
PROVIDERS: PCP Internal Medicine; Referring Provider Obstetrics & Gynecology; Visit Provider Obstetrics & Gynecology
DX: Z13.89 Encounter for screening for other disorder (principal); Z80.3 Family history of malignant neoplasm of breast
CPT/HCPCS: 36415

== ENCOUNTER → 2021-10-13 | Outpatient (CLI) | payer OTHER, SELFPAY ==
--- NOTE | 2021-10-13 13:27 | US_ITS ---
STUDY: ULTRASOUND BREAST - RIGHT REASON FOR EXAM: Female, 31 years old. Chronic mastoiditis. Patient is breast-feeding. TECHNIQUE: Axial and longitudinal images of the RIGHT breast were performed with a high resolution ultrasound transducer. # OF IMAGES: 113 COMPARISON: None. FINDINGS: RIGHT Breast: Imaging of the lateral aspect of the right breast was obtained with ultrasound. There is dense fibroglandular tissue. No sonographic abnormality is seen. IMPRESSION: No sonographic abnormality is seen. ASSESSMENT CATEGORY: BIRADS Category 1: Negative. A letter regarding these results will be sent to the patient by the facility within 30 days. Electronically Signed: Ye Foy MD at 14:40 EDT , STUDY: ULTRASOUND BREAST - LEFT REASON FOR EXAM: Female, 31 years old. Chronic mastoiditis. The patient is breast-feeding. TECHNIQUE: Axial and longitudinal images of the LEFT breast were performed with a high resolution ultrasound transducer. # OF IMAGES: 113 COMPARISON: None. FINDINGS: LEFT Breast: The lateral half of the left breast was examined with ultrasound. There is heterogeneous breast tissue. No sonographic abnormality is seen. US/Breast Limited Unilateral IMPRESSION: No sonographic abnormality is seen. ASSESSMENT CATEGORY: BIRADS Category 1: Negative. A letter regarding these results will be sent to the patient by the facility within 30 days. Electronically Signed: Ye Foy MD at 14:42 EDT ,
== END | disposition home or self-care (01) ==
LOC: OPUS 13:22
PROVIDERS: PCP Internal Medicine; Visit Provider Obstetrics & Gynecology
DX: N60.19 Diffuse cystic mastopathy of unspecified breast (principal)
CPT/HCPCS: 76642

== ENCOUNTER → 2022-01-26 | Outpatient (CLI) | payer OTHER, SELFPAY ==
[2022-01-26 17:46] LABS: hCG Titer Quant., Serum < 1 mIU/mL (1-3)
== END | disposition home or self-care (01) ==
LOC: LAB 16:16
PROVIDERS: PCP Internal Medicine; Referring Provider Registered Nurse; Visit Provider Registered Nurse
DX: N91.2 Amenorrhea, unspecified (principal)
CPT/HCPCS: 36415; 84702

== ENCOUNTER → 2022-04-21 | Outpatient (CLI) | payer OTHER, SELFPAY ==
[2022-04-21 11:53] LABS: hCG Titer Quant., Serum 17798 mIU/mL (1-3)
== END | disposition home or self-care (01) ==
PROVIDERS: PCP Internal Medicine; Referring Provider Nurse Practitioner Women's Health; Visit Provider Nurse Practitioner Women's Health
DX: Z34.90 Encounter for supervision of normal pregnancy, unspecified, unspecified trimester (principal)
CPT/HCPCS: 36415; 84702

== ENCOUNTER → 2022-04-22 | Outpatient (CLI) | payer OTHER, SELFPAY | END | disposition home or self-care (01) | LOC: LABSPEC 10:27 | PROVIDERS: PCP Internal Medicine; Referring Provider Obstetrics & Gynecology; Visit Provider Obstetrics & Gynecology | DX: N92.0 Excessive and frequent menstruation with regular cycle (principal) ==

== ENCOUNTER → 2022-04-23 | Outpatient (CLI) | payer OTHER, SELFPAY ==
[2022-04-23 12:34] LABS: hCG Titer Quant., Serum 23597 mIU/mL (1-3)
== END | disposition home or self-care (01) ==
PROVIDERS: PCP Internal Medicine; Referring Provider Obstetrics & Gynecology; Visit Provider Obstetrics & Gynecology
DX: N92.0 Excessive and frequent menstruation with regular cycle (principal)
CPT/HCPCS: 36415; 84702

== ENCOUNTER → 2022-05-06 | Outpatient (CLI) | payer OTHER, SELFPAY ==
[2022-05-06 11:07] LABS: Absolute Lymphocyte Count 1.84 X10^3/uL (0.83-4.51); Absolute Neutrophil Count 3.4 X10^3/uL (2.0-7.7); Basophil# 0.02 X10^3/uL; Basophil% 0.3 % (0-1); Eosinophil# 0.03 X10^3/uL; Eosinophils% 0.5 % (0-5); Hematocrit 42.1 % (37-47); Hemoglobin 13.7 g/dL (12.0-15.0); Lymphocyte # 1.84 X10^3/ul (0.83-4.51); Lymphocyte % 32.1 % (19-41); Mean Corp Hgb Conc 32.5 g/dL (32-36); Mean Corpuscular Hgb 29.5 pg (27.0-32.0); Mean Corpuscular Volume 90.5 fL (81-99); Mean Platelet Vol. 10.2 fl (6.2-12.0); Monocyte# 0.43 X10^3/uL; Monocyte% 7.5 % (0-10); NRBC Flagged by Analyzer 0 % (0-5); Neutrophil # 3.39 X10^3/uL (2.7-7.7); Neutrophil % 59.1 % (47-70); Platelet Count 194 K/mm3 (150-450); RBC Distribution Width CV 13.2 % (11.6-14.6); RBC Distribution Width SD 43.6 fl (35.1-43.9); Red Blood Count 4.65 M/mm3 (4.2-5.4); White Blood Count 5.7 K/mm3 (4.4-11.0)
[2022-05-06 12:21] LABS: HIV - WCH Non-Reactive (Nonreactive); Hepatitis B Surface Antigen Non-Reactive (Nonreactive); Hepatitis C Antibody Non-Reactive (Nonreactive); Rubella IgG Reactive (Nonreactive); Syphilis Antibodies Non-reactive
[2022-05-08 22:07] LABS: Chlamydia By Nucleic Acid AMP Negative (Negative)
[2022-05-09 08:55] LABS: Gonococcus By Nucleic Acid AMP Negative (Negative)
[2022-05-13 16:07] LABS: HPV APTIMA, High Risk Negative (Negative)
== END | disposition home or self-care (01) ==
PROVIDERS: PCP Internal Medicine; Referring Provider Advanced Practice Midwife; Visit Provider Advanced Practice Midwife
DX: Z34.80 Encounter for supervision of other normal pregnancy, unspecified trimester (principal)
CPT/HCPCS: 36415; 85025; 86703; 86762; 86780; 86803; 86850; 86900; 86901; 87086; 87088; 87340; 87491; 87591; 87624; 88175; G0145

== ENCOUNTER → 2022-09-23 | Outpatient (CLI) | payer OTHER, SELFPAY ==
[2022-09-23 11:33] LABS: Absolute Lymphocyte Count 1.05 X10^3/uL (0.83-4.51); Absolute Neutrophil Count 4.3 X10^3/uL (2.0-7.7); Basophil# 0.01 X10^3/uL; Basophil% 0.2 % (0-1); Eosinophil# 0.03 X10^3/uL; Eosinophils% 0.5 % (0-5); Hematocrit 33.6 % (37-47); Hemoglobin 10.8 g/dL (12.0-15.0); Lymphocyte # 1.05 X10^3/ul (0.83-4.51); Lymphocyte % 18.1 % (19-41); Mean Corp Hgb Conc 32.1 g/dL (32-36); Mean Corpuscular Hgb 31.2 pg (27.0-32.0); Mean Corpuscular Volume 97.1 fL (81-99); Mean Platelet Vol. 10.7 fl (6.2-12.0); Monocyte# 0.39 X10^3/uL; Monocyte% 6.7 % (0-10); NRBC Flagged by Analyzer 0 % (0-5); Neutrophil % 74.3 % (47-70); Platelet Count 151 K/mm3 (150-450); RBC Distribution Width CV 13.3 % (11.6-14.6); RBC Distribution Width SD 47.1 fl (35.1-43.9); Red Blood Count 3.46 M/mm3 (4.2-5.4); White Blood Count 5.8 K/mm3 (4.4-11.0)
[2022-09-23 11:43] LABS: Glucose Challenge Gest 1H 50g 100 mg/dL (70-140)
[2022-09-23 12:17] LABS: HIV - WCH Non-Reactive (Nonreactive); Syphilis Antibodies Non-reactive
== END | disposition home or self-care (01) ==
LOC: PAVLAB 10:30
PROVIDERS: PCP Internal Medicine; Referring Provider Obstetrics & Gynecology; Visit Provider Obstetrics & Gynecology
DX: Z34.80 Encounter for supervision of other normal pregnancy, unspecified trimester (principal); Z3A.00 Weeks of gestation of pregnancy not specified
CPT/HCPCS: 36415; 82950; 85025; 86703; 86780

== ENCOUNTER → 2022-11-16 | Outpatient (CLI) | payer OTHER, SELFPAY | END | disposition home or self-care (01) | LOC: LABSPEC 13:13 | PROVIDERS: PCP Internal Medicine; Referring Provider Obstetrics & Gynecology; Visit Provider Obstetrics & Gynecology | DX: Z34.80 Encounter for supervision of other normal pregnancy, unspecified trimester (principal) | CPT/HCPCS: 87081 ==

== ENCOUNTER 2022-12-02 12:29 | Inpatient (IN) | payer OTHER, SELFPAY ==
[2022-12-02] VITALS (27 sets, daily range): BP systolic 94–137; BP diastolic 55–79; PULSE 80–108; RESP 18; TEMP 36.6–36.7; O2SAT 81–100; BMI 24.3
[2022-12-02] MEDS: Lactated Ringers 1,000 ML 50 ML IV (13:10)
[2022-12-02 13:24] LABS: Absolute Lymphocyte Count 1.79 X10^3/uL (0.83-4.51); Absolute Neutrophil Count 5.5 X10^3/uL (2.0-7.7); Basophil# 0.01 X10^3/uL; Basophil% 0.1 % (0-1); Eosinophil# 0.02 X10^3/uL; Eosinophils% 0.3 % (0-5); Hematocrit 38.1 % (37-47); Hemoglobin 12.5 g/dL (12.0-15.0); Lymphocyte # 1.79 X10^3/ul (0.83-4.51); Lymphocyte % 22.5 % (19-41); Mean Corp Hgb Conc 32.8 g/dL (32-36); Mean Corpuscular Hgb 29.7 pg (27.0-32.0); Mean Corpuscular Volume 90.5 fL (81-99); Mean Platelet Vol. 11.7 fl (6.2-12.0); Monocyte# 0.62 X10^3/uL; Monocyte% 7.8 % (0-10); NRBC Flagged by Analyzer 0 % (0-5); Neutrophil # 5.49 X10^3/uL (2.7-7.7); Neutrophil % 68.9 % (47-70); Platelet Count 187 K/mm3 (150-450); RBC Distribution Width SD 42.8 fl (35.1-43.9); Red Blood Count 4.21 M/mm3 (4.2-5.4)
--- NOTE | 2022-12-02 14:09 | HP.PCM.OB_ITS ---
HPI - General General Date of Admission: 12/02/22 HPI Narrative LAUREN PARSONS, is a 32 y/o @ 38 weeks 5 days who presents to l&d in early labor. She is comfortable between contractions but states that she would like to have an epidural before her membranes are ruptured. Maternal Data Information TALIA Calculator Estimated Delivery Date Method Current WG Current Estimate 12/11/22 LMP (Certain) 38w 5d Other Estimates 12/10/22 Ultrasound #1 38w 6d PFSH PFSH Medical History (Updated 12/02/22 @ 13:54 by Janette Walden) Breast tenderness in female Complete miscarriage Dairy product intolerance Fibrocystic breast Genetic testing of female Gluten intolerance Lab test positive for detection of COVID-19 virus depression Status post vacuum-assisted vaginal delivery Home Medications multivitamin 1 ea PO DAILY Check with primary doctor 08/30/19 [History Last Taken Unknown] ferrous fumarate 89 mg (29 mg iron) tablet 89 mg PO DAILY 10/06/22 [History Last Taken Unknown] sertraline 50 mg tablet See Rx Instructions .Route .COMPLEX #90 tabs 11/16/22 [Rx Last Taken Unknown] Allergy/AdvReac Type Severity Reaction Status Date / Time No Known Allergies Allergy Verified 11/30/22 09:02 Family History Mother Breast cancer Grandmother Breast cancer Diabetes Grandfather Diabetes Hypertension Surgical History H/O wisdom tooth extraction History of bunionectomy of both great toes History of dilation and curettage right toe surgery Social History adopted: No household members: spouse and children housing: house number of children: 2 current occupational status: unemployed current occupation: [employer] pets and animals: Yes ( doing litter box) pets and animals: cat(s) history of recent travel: No sexually active: Yes Smoking Status: Never smoker alcohol intake: never substance use type: does not use well-balanced diet: about half the time caffeine: No eating out: 1-3 times/week what type of physical activity do you participate in: walking frequency: 3-4 times per week seatbelt use: always do you feel safe at home: Yes additional social history: - 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 Date Name GA/Weeks Outcome Route Bth Weight Infant Gen Labor Lgth Anesthesia Del Locatn Provider FOB 06/15/19 Case 41 live - full term Female epi dural [facility] DONALD 06/09/21 Edward 38 live - full term vacuum Male epidu ral [facility] Vande Velde Delivery Date: 06/15/19 Last Updated by: Laura Lopes IOL POST DATES Delivery Date: 06/09/21 Last Updated by: Sheryl Acevedo terminal bradycardia Visit Details Expected Delivery Route/Plan Labor Preferences- labor support person: hiram, mom alyssa and grecia sister labor intervention preferences: none pain management options preferred: epidural cut cord/dad catch: no : yes PP control planned: [] discussed possible routes of delivery and associated risks: [] special requests: [] Plans Covid status:discussed Flu vaccine: discussed Tdap vaccine: given Rhogam: na LARC form signed: declined movement and labor precautions reviewed. Problem list reviewed and updated with the most current plan of care details and appropriate orders placed. Relevant counseling for the gestational age provided. Continue routine care and follow up unless otherwise noted in visit notes/problem list details OB Flowsheet Initial Weight: Not Recorded Date -?-?-?-?-?-?-?-?-?-?-?-?- EGA Weight BP Urine Prot -?-?-?-?-?-?-?-?-?-?-?-?- Glucose FHR FuHt Pres Dilation -?-?-?-?-?-?-?-?-?-?-?-?- Effaced St Visit Note 05/06/22 -?-?-?-?-?-?-?-?-?-?-?-?- 8w 5d 119 lb 4 oz 119 lb 99/77 -?-?-?-?-?-?-?-?-?-?-?-?- 175 -?-?-?-?-?-?-?-?-?-?-?-?- KW-no complaints , no cramping.US by HAMZAH-lisette with LMP Dating KW-no complaints, no crampin g.US by JV-CRL consistent with LMP 06/03/22 -?-?-?-?-?-?-?-?-?-?-?-?- 12w 5d 123 lb 6 oz 103/69 Nega tive -?-?-?-?-?-?-?-?-?-?-?-?- Negative 1 155 -?-?-?-?-?-?-?-?-?-?-?-?- JV- no lof, vagi nal bleeding or cramping. declines NIPT 07/01/22 -?-?-?-?-?-?-?-?-?-?-?-?- 16w 5d 127 lb 4 oz 109/71 Nega tive -?-?-?-?-?-?-?-?-?-?-?-?- Negative 150 -?-?-?-?-?-?-?-?-?-?-?-?- JV- no complaint s, anatomy scan is scheduled on 07/14 and they will find out gender. 07/28/22 -?-?-?-?-?-?-?-?-?-?-?-?- 20w 4d 133 lb 4 oz 90/60 Trac e -?-?-?-?-?-?-?-?-?-?-?-?- Negative 146 -?-?-?-?-?-?-?-?-?-?-?-?- -No Vb, LOF. G ood FM. 08/24/22 -?-?-?-?-?-?-?-?-?-?-?-?- 24w 3d 139 lb 4 oz 101/63 -?-?-?-?-?-?-?-?-?-?-?-?- 140 -?-?-?-?-?-?-?-?-?-?-?-?- SM- no vb crampi ng some pelvic pain 09/23/22 -?-?-?-?-?-?-?-?-?-?-?-?- 28w 5d 144 lb 2 oz 99/62 Nega tive -?-?-?-?-?-?-?-?-?-?-?-?- Negative 147 27 -?-?-?-?-?-?-?-?-?-?-?-?- JV- no lof, vagi nal bleeding, or dec GCT done today, results pending. 10/06/22 -?-?-?-?-?-?-?-?-?-?-?-?- 30w 4d 143 lb 96/60 Trace -?-?-?-?-?-?-?-?-?-?-?-?- Negative 140 31 -?-?-?-?-?-?-?-?-?-?-?-?- SM- no vb lof go od fm no regular ctx 10/20/22 -?-?-?-?-?-?-?-?-?-?-?-?- 32w 4d 144 lb 101/65 Negative -?-?-?-?-?-?-?-?-?-?-?-?- Negative 138 31 -?-?-?-?-?-?-?-?-?-?-?-?- Lc- no vb/lof/ct x. good fm. having vaginal itching/burning since intercourse on wednesday. copious curdy white d/c. diflucan rx sent. Lc- no vb/lof/ctx. good fm. having vaginal itching/burning since intercourse on wednesday. copious curdy white d/c. +yeast infection. diflucan rx sent. 11/02/22 -?-?-?-?-?-?-?-?-?-?-?-?- 34w 3d 147 lb 4 oz 105/73 -?-?-?-?-?-?-?-?-?-?-?-?- 140 34 -?-?-?-?-?-?-?-?-?-?-?-?- SM- no vb lof go od fm no reuglar ctx 11/10/22 -?-?-?-?-?-?-?-?-?-?-?-?- 35w 4d 147 lb 4 oz 113/64 -?-?-?-?-?-?-?-?-?-?-?-?- -?-?-?-?-?-?-?-?-?-?-?-?- nst for dec fm 11/16/22 -?-?-?-?-?-?-?-?-?-?-?-?- 36w 3d 148 lb 99/58 Negative -?-?-?-?-?-?-?-?-?-?-?-?- Negative 140 36 Cephalic 1 -?-?-?-?-?-?-?-?-?-?-?-?- 60 -2 SM- no vb lof good fm no regular ctx gbs collected, discussed job loss of 11/25/22 -?-?-?-?-?-?-?-?-?-?-?-?- 37w 5d 151 lb 4 oz 110/60 Nega tive -?-?-?-?-?-?-?-?-?-?-?-?- Negative 141 37 Cephalic 2 -?-?-?-?-?-?-?-?-?-?-?-?- 70 -1 JV- no lof , vaginal bleeding, or dec fm. labor precautions discussed. 11/30/22 -?-?-?-?-?-?-?-?-?-?-?-?- 38w 3d 152 lb 104/67 Negative -?-?-?-?-?-?-?-?-?-?-?-?- Negative 140 38 Cephalic 2 -?-?-?-?-?-?-?-?-?-?-?-?- 60 -2 SM- no vb lof good fm no regular ctx discussed not favorable cervical exam, wouldn't recommend IOL at this point ROS Constitutional Constitutional: Denies change in weight, fatigue, fever(s), headache(s), poor appetite or weakness Eyes Eyes: Denies blurry vision, change in vision, seeing flashes or spots in vision ENT HEENT: Denies dizziness, headache(s), loss taste/smell or sore throat Cardiovascular Cardiovascular: Denies chest pain, dizziness, dyspnea, irregular heart rhythm, leg edema, palpitations, rapid heart rate or vomiting Respiratory/Chest Respiratory/Chest: Denies chest tightness, cough, dyspnea or breast pain Gastrointestinal Gastrointestinal: Denies abdominal pain, anorexia, constipation, cramping, diarrhea, hemorrhoids, vomiting or weight changes Genitourinary Genitourinary: Denies dysuria, flank pain, genital lesions, genital pain, urinary frequency or urinary urgency Musculoskeletal Musculoskeletal: Denies back pain, difficulty walking, joint pain, limited range of motion, muscle cramps or numbness Integumentary Integumentary: Denies lesions or unusual bruising Neurologic Neurologic: Denies abnormal movements, abnormal speech, dizziness, numbness, s eizure-like activity or syncope Psychiatric Psychiatric: Denies anxiety, behavioral changes, change in appetite, change in libido, cognitive impairment, confusion, depression, difficulty concentrating, hallucinations or suicidal thoughts Endocrine Endocrinology: Denies excessive sweating, polydipsia or polyuria Hematologic/Lymphatic Hematologic/Lymphatic: Denies easy bleeding, easy bruising or lymphadenopathy Allergic/Immunologic Allergic/Immunologic: Denies itchy eyes, lip swelling, seasonal rhinorrhea, rhinitis, throat swelling, tongue swelling, eczemia, wheezing or asthma Vital Signs Vital Signs Vital Signs: 12/02/22 12:09 12/02/22 12:09 12/02/22 13:14 Pulse Rate 82 Blood Pressure 110/70 117/79 BP Systolic 110 117 BP Diastolic 70 79 12/02/22 13:14 Pulse Rate 90 Blood Pressure BP Systolic BP Diastolic Weight Weight: 151 lb 2 oz Body Mass Index (BMI) 24.3 Physical Exam Const alert, oriented x3, no apparent distress and healthy appearing General Appearance: cooperative; Negative for anxious HEENT normocephalic Face and Sinus: normal facial exam Eyes EOMs intact bilaterally and no scleral icterus General Eye: normal appearance of both eyes Neck full ROM and supple Lymph Lymphatic: no lymphadenopathy noted Chest Chest: abnormal inspection of the chest Resp normal respiratory effort Effort and Inspection: able to speak in complete sentences Cardio regular rate GI soft to palpation and non-tender Inspection: gravid Palpation: soft; Negative for tender Narrative: nurse just checked and cx is 4 cm with bulging membranes. Back/Spine no CVA tenderness Extremity normal to inspection, full ROM and no clubbing, cyanosis or edema General Extremity: Negative for calf tenderness or edema Skin Lesions: no lesions Rashes: no rashes Psych mental status grossly normal Labs Labs Labs: Blood Type O POSITIVE Antibody Screen NEGATIVE Hct 38.1 % (37-47) Hgb 12.5 g/dL (12.0-15.0) Obstetrics Ultrasound Syphilis Total Ab Non-reactive Rubella IgG Antibody Reactive (Nonreactive) Hep Bs Antigen Non-Reactive (Nonreactive) Hepatitis C Antibody Non-Reactive (Nonreactive) Chlamydia DNA (BAILEE) Negative (Negative) N.gonorrhoeae DNA (BAILEE) Negative (Negative) HIV 1&2 Antibody Non-Reactive (Nonreactive) Glucose 1 Hr 50 gm 100 mg/dL (70-140) Rhogam given: No Miscellaneous Test Assessment & Plan (1) Anemia affecting : COMMENT: OTC Fe daily (2) Depression affecting : COMMENT: stable on zoloft 50mg- counseling encouraged; stable (3) Supervision of other normal : COMMENT: PRR TALIA: 12/11/22 boy (name surprise) PC: Edward Willoughby, Spouse: Hiram (4) : QUALIFIERS: Weeks of gestation: 37 weeks Qualified Code(s): Z3A.37 - 37 weeks gestation of COMMENT: gbs neg. anatomy nl, Declines NIPT carrier and afp screen., nl GCT PLAN: Plan Patient presents IAL, plan expectant management for , pitocin/AROM PRN if needed. Pain management: plans epidural. GBS negative. Management of any complications: none I have reviewed the [facility] and made any clinically relevant updates.
[2022-12-02 14:29] LABS: Syphilis Antibodies Non-reactive
[2022-12-02] MEDS: LACTATED RINGERS 500 ML 999 ML IV (14:30)
[2022-12-02] MEDS: fentaNYL-bupivacaine (epidural) 100 ML BAG EPIDURAL (14:50)
[2022-12-02] MEDS: Oxytocin 10 UNITS/ML Vial IM (16:12)
--- NOTE | 2022-12-02 16:32 | EX.PCM.OBRPT ---
Assessment & Plan (1) Anemia affecting : COMMENT: OTC Fe daily (2) Depression affecting : COMMENT: stable on zoloft 50mg- counseling encouraged; stable (3) Supervision of other normal : COMMENT: PRR TALIA: 12/11/22 boy (name darryn) PC: Edward Willoughby, Spouse: Artemio (4) : QUALIFIERS: Weeks of gestation: 37 weeks Qualified Code(s): Z3A.37 - 37 weeks gestation of COMMENT: gbs neg. anatomy nl, Declines NIPT carrier and afp screen., nl GCT Maternal Data Information TALIA Calculator Estimated Delivery Date Method Current WG Current Estimate 12/11/22 LMP (Certain) 38w 5d Other Estimates 12/10/22 Ultrasound #1 38w 6d Final TALIA: 12/11/22 Final TALIA Source: LMP Gestational age: 38 weeks 5 days Vaginal Delivery Maternal Presentation Maternal Presentation: Active Labor Type of Induction: Amniotomy Operative Information Date of Procedure: 12/02/22 Pre-Operative Diagnosis: 32 y/o @ 38 weeks 5 days, active labor Post-Operative Diagnosis: 32 y/o @ 38 weeks 5 days, active labor Surgery / Procedure Performed: Spontaneous Vaginal Delivery Type of Anesthesia: Epidural Anesthesiologist: Deep Moralez Drain: Frazier to straight drain Estimated Blood Loss: 200cc Time of Delivery: 16:08 Findings Description of Procedure: Patient began pushing and delivered the head in the DOMO presentation. The head was delivered atraumatically. The anterior and posterior shoulders delivered without complication followed by the rest of the and the was placed on the maternal abdomen. Delayed cord clamping was employed for approximately 60 seconds. Cord was clamped and cut and gentle traction was applied to the cord and the placenta delivered spontaneously immediately following it was noted to be intact with three-vessel cord. The perineum and vagina were inspected and noted to have a 1st degree perineal laceration. EBL was 200 cc. Patient and tolerated delivery well. Presentation: Vertex Amniotic Membrane Rupture Type: Artificial Time of Membrane Rupture: 15:20 Amniotic Fluid Description: Clear Placental Delivery Description: Spontaneous Placenta Disposition: [facility] Cord Vessel Description: 3 Vessels Cord Entanglement: None A Gender: Male (1 minute): 7 (5 minute): 9 Delayed Cord Clamping: Yes Post Vaginal Delivery Medications Given After Delivery: IM Pitocin Episiotomy Description: None Laceration: 2nd degree Complication Complications: None Multi Select Codes Urinary/Genital Urinary/Genital CPT Codes: 02751 [facility]
--- NOTE | 2022-12-02 16:46 | DCINST_ITS ---
Discharge Instructions Diet Discharge Diet: No restrictions Activity Discharge Activity: Return to Normal Activity, May Not Drive (while taking narcotic pain medications.) and May Shower May resume sexual activity in: 4-6 weeks Dressing / Incision Call your doctor if your incision/area has: Continuous Slow Oozing, Sudden Increased Bleeding, Increased Pain/ Swelling, Increased Redness and Foul Smelling Discharge Follow Up Care Please Follow Up With: Kathe Roe, When: Call [phone] to make an appointment with your doctor in 6 weeks. If you had elevated blood pressure or 4th degree laceration, you will need to be seen in 2 weeks. Test Results: Test results from this visit will be discussed in further detail at your follow- up appointment, if applicable. Discharge Plan Admission Admit Date/Time: 12/02/22 12:29 Attending Provider: Kathe Roe Primary Care Provider: Diandra Curry Discharge Orders/Prescriptions Prescriptions: No Action ferrous fumarate 89 mg (29 mg iron) tablet 89 mg PO DAILY multivitamin 1 EACH tablet 1 ea PO DAILY sertraline 50 mg tablet See Rx Instructions .ROUTE .COMPLEX Qty: 90 3RF Dose Instruction: TAKE 1 TABLET DAILY Rx Instructions: TAKE 1 TABLET DAILY Referrals / Follow Up: Diandra Curry MD [Primary Care Provider] -
[2022-12-02] MEDS: Oxytocin 15 Units/NS 250ml 15 UNITS/250 ML IV.SOLN 83 UNITS IV (16:58)
[2022-12-03 03:39] VITALS: BP 112/70; PULSE 80; RESP 18
--- NOTE | 2022-12-03 07:26 | PN.OBGYN_ITS ---
Subjective Subjective Patient doing well without complaints. Tolerating PO. Ambulating and voiding without difficulty. feeding well. Denies chest pain, shortness of breath, calf pain/swelling, fevers, chills, lightheadedness. Objective Data Objective Data Vital Signs: Vital Signs Temp Pulse Resp BP Pulse Ox O2 Del Method 98 F 80 18 112/70 100 Room Air 12/02/22 20:23 12/03/22 03:39 12/03/22 03:39 12/03/22 03:39 12/02/22 15:05 12/03/22 03:39 Oxygen Delivery Method Room Air Weight: 151 lb 2 oz Body Mass Index (BMI) 24.3 Intake & Output: Intake and Output for Last 24 Hours 12/01/22 12/02/22 12/03/22 23:59 23:59 23:59 Intake Total 929.17 / 929.17 Output Total 1150 / 1150 Balance -220.83 / -220.83 Lab / Micro Data 12/02/22 13:10 Labs: Laboratory Results - last 24 hr 12/02/22 13:10: WBC 8.0, RBC 4.21, Hgb 12.5, Hct 38.1, MCV 90.5, MCH 29.7, MCHC 32.8, RDW Std Deviation 42.8, RDW Coeff of Bryant 13.0, Plt Count 187, MPV 11.7, Immature Gran % (Auto) 0.400, Neut % (Auto) 68.9, Lymph % (Auto) 22.5, [place] % (Auto) 7.8, Eos % (Auto) 0.3, Baso % (Auto) 0.1, Absolute Neuts (auto) 5.5, Absolute Lymphs (auto) 1.79, Nucleated RBC % 0, Syphilis Total Ab Non-reactive, Blood Type O POSITIVE, Antibody Screen NEGATIVE ROS Constitutional Constitutional: Reports systems reviewed and no addt'l complaints, except as documented Cardiovascular Cardiovascular: Reports systems reviewed and no addt'l complaints, except as documented Respiratory/Chest Respiratory/Chest: Reports systems reviewed and no addt'l complaints, except as documented Gastrointestinal Gastrointestinal: Reports systems reviewed and no addt'l complaints, except as documented Physical Exam Const alert, oriented x3 and no apparent distress HEENT Head and Scalp: atraumatic Resp normal respiratory effort GI soft to palpation and non-tender Bimanual Exam - Vag & Uterus: uterus non-tender Uterus Palpation: uterus fundus firm (below Umbilicus) Assessment & Plan (1) Vaginal delivery: PLAN: Plan s/p PPD # 1 1. routine post delivery care 2. breast feeding- support given 3. rh positive 4. rubella immune
[2022-12-03 08:29] VITALS: O2SAT 95
[2022-12-03 08:30] VITALS: BP 106/68; PULSE 76; PULSE 77; RESP 16; TEMP 36.4; O2SAT 98
[2022-12-03] MEDS: Sertraline 50 MG Tablet PO (09:42)
[2022-12-03] MEDS: Senna/Docusate Sodium 1 Tablet PO (09:42)
--- NOTE | 2022-12-03 10:56 | CASEMGMT ---
Social Work Assessment Labor and Delivery Unit Patient Address: [address] [place] [address]. [place] [address] Phone number: [phone] Date of Referral: 12/02/22 Time of Referral:? 2200 Referred By: Kathe Roe Date of Intervention: ??12/03/22 Time of Intervention:? 5 Reason for Referral:? hx PPD Sw completed chart review and acknowledges social work consult due to maternal history of depression. Sw presented to bedside and introduced self to mother of baby (STEPHY Richards) and her sister. MOB stated that it was ok for sw to complete assessment with visitor present. Sw completed psychosocial assessment and provided MOB with list of local resources and literature to review regarding depression and baby blues. History obtained from: medical records, MOB??? Household composition: Currently residing in the family home is DESTINEE HOPPER their two older children (Case: : 06/15/2019 and Edward: : 06/09/2021) and now baby boy. MOB states that housing is safe and secure. Patient's parent/guardian status: RUCHI states that she and DESTINEE met each other a long time ago, as children through [employer]. They started dating and have been together for 7 years. RUCHI denies any concerns of domestic violence or intimate partner violence. Medical History: ?RUCHI is 5, para 2- now 3. She received routine care through [facility]. RUCHI delivered baby boy on 12/02/22 via vaginal delivery at 38 weeks gestation. Baby boy, named Jam Hunter, was born weighing 7lb 10oz and his apgars were 7 and 8 at one and five minutes of life respectfully. RUCHI states that she is breast feeding and it is going well, she has a breast pump for home. Educational Status:? Both parents have obtained bachelors degrees. Financial Status: RUCHI is a stay at home mom. 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 RUCHI reports that several weeks ago DESTINEE was laid off from his job, but his employer was able to provide the family with insurance coverage through [employer] due to RUCHI being . RUCHI states that EDSTINEE was off for the last two weeks which was really nice for their family before welcoming their third baby. And during that time he interviewed with several employers and obtained new employment with a company that he is really excited to be working for. Infant Supplies:?MOB states that parents have obtained all necessary baby items including: clothes, diapers, wipes, safe sleep space, car seat and a breast pump. ? Childcare/Caregiver(s):? RUCHI will be the primary caregiver to baby, along wit help from DESTINEE when he is not at work. Transportation:?? Both parents have their drivers license and reliable means of transportation. No transportation barriers at this time. Programs/Agencies Involved: No linkage to community agencies at this time. ??? Children Services/Legal Issues:??? No history of children services involvement, no issues or concerns warranting a referral at this time. Behavioral Health Issues: ??Mental Health History: RUCHI states that DESTINEE does not have a mental health history. MOB states that she has been diagnosed with anxiety and depression. RUCHI states that her anxiety is generalized anxiety, and she did experience depression following the of her first child. RUCHI states that that was during COVID and she lost her job, connection to family, supports and connectios due to the world shutting down. MOB states that when she had her second baby she felt so much more at ease and calm. RUCHI reports that right now she feels good emotionally/ mentally and is not worried that she will struggle with any baby blues/ . ??? Substance Use History:?RUCHI denies substancev use prior to and during . ? Family History:???MOB denies family history of mental health and substance use. ?? Drug Screens: No urine screens observed in chart review. Family/Social Stressors:? RUCHI denies stressors at this time. Support Systems: RUCHI states that she has a very large support network. MOB states that DESTINEE, her parents and siblings and [employer] group are all big supports to her. RUCHI was encouraged to reach out to the supports that she has in place should she struggle during this period. Depression/Shaken Baby/Safe Sleeping:? Sw educated MOB on signs and symptoms of baby blues and depression/ anxiety. Sw provided MOB with literature to review. Sw encouraged MOB to talk about any signs or symptoms of baby blues or depression that she may experience with her OBGYN. MOB expressed understanding. Sw educated MOB on shaken baby prevention and ABCs of safe sleep. MOB expressed understanding. ASSESSMENT:? MOB requires admission following delivery of baby boy. MOB receptive to sw involvement and support, talkative during psychosocial assessment. MOB connected to natural supports and understanding of signs and symptoms of baby blues and depression to be on the lookout for. PLAN:? MOB and baby to be discharged when medically ready. ?No other services requested or indicated. Carmen Chowdary, PRODUCT MANUFACTURING PROFESSIONAL, VOCATIONAL TRAINING INSTRUCTOR
[2022-12-03 12:14] VITALS: BP 100/64; PULSE 81; O2SAT 99
[2022-12-03 12:47] VITALS: BP 100/64; PULSE 76; RESP 16; TEMP 36.2; O2SAT 99
--- NOTE | 2022-12-03 15:14 | CHAPLAIN ---
Type of Pastoral Visit _x__ Initial Visit ___ Follow-up Visit ___ On-call Visit ___ General Patient Visit ___ Spiritual Assessment ___ Family Conference ___ Bereavement ___ Rapid Response ___ Code Blue ___ Other (describe below) Pastoral Care Referral From _x__ Patient _x__ Family ___ Nurse ___ Physician ___ Assistant Professor Of Business ___ Concert Or Lecture Hall Manager ___ Other (describe below) Sacrament/Intervention _x__ Active listening ___ Anointing ___ Worship ___ Bereavement ___ Communion ___ Georgie exploration ___ _x__ Life review _x__ Prayer ___ Reconciliation ___ Sacrament of Sick _x__ Supportive presence ___ Wedding ___ Other (describe below) Pastoral Comments
[2022-12-03 16:13] VITALS: BP 98/60; PULSE 87
--- NOTE | 2022-12-07 15:53 | NURSING ---
Attempted follow phone call, no answer. Voicemail left with unit phone number if patient has any questions or concerns.
== END 2022-12-03 18:00 | disposition home or self-care (01) | DRG 807 ==
LOC: WPOUT 12:31 → WP 12:31
PROVIDERS: Admitting Provider Obstetrics & Gynecology; PCP Internal Medicine; Referring Provider Obstetrics & Gynecology; Visit Provider Obstetrics & Gynecology
DX: O70.0 First degree perineal laceration during delivery (principal); Z37.0 Single live birth; O26.23 Pregnancy care for patient with recurrent pregnancy loss, third trimester; D64.89 Other specified anemias; F32.A Depression, unspecified; Z86.16 Personal history of COVID-19; Z3A.38 38 weeks gestation of pregnancy; O99.02 Anemia complicating childbirth; O99.344 Other mental disorders complicating childbirth
CPT/HCPCS: 59025; 59050; 85025; 86780; 86850; 86900; 86901; 99221; J7120; G0378

== ENCOUNTER → 2023-01-13 | Outpatient (CLI) | payer OTHER, SELFPAY ==
--- NOTE | 2023-01-13 10:34 | US_ITS ---
STUDY: ULTRASOUND BREAST - LEFT REASON FOR EXAM: Female, 32 years old. Left breast lump. Patient is breast-feeding. TECHNIQUE: Axial and longitudinal images of the LEFT breast were performed with a high resolution ultrasound transducer. # OF IMAGES: 50 COMPARISON: None. FINDINGS: LEFT Breast: The upper outer quadrant of the left breast was examined with ultrasound. There are dilated ducts. US/Breast Limited Unilateral IMPRESSION: Dilated ducts. ASSESSMENT CATEGORY: BIRADS Category 2: Benign. A letter regarding these results will be sent to the patient by the facility within 30 days. Electronically Signed: Ye Foy MD at 11:21 EST ,
== END | disposition home or self-care (01) ==
PROVIDERS: PCP Internal Medicine; Referring Provider Obstetrics & Gynecology; Visit Provider Obstetrics & Gynecology
DX: N63.20 Unspecified lump in the left breast, unspecified quadrant (principal)
CPT/HCPCS: 76642

== ENCOUNTER → 2023-04-23 | Outpatient (CLI) | payer OTHER, SELFPAY ==
--- NOTE | 2023-04-23 12:11 | IMM_PTH ---
PATHOLOGY RESULTS PATIENT: LAUREN PARSONS LOC: [facility] U#:[id number] AGE/SX: 32/F ROOM: RE04/23/[address]: Dr. Irlanda Ramirez MD : 1990 BED: DIS: 04/23/2023 SPEC #: [id number] RECD: 04/26/23 10:42 STATUS: GEOVANNA REQ #: [id number] LEIGHANN: 04/23/23 12:[address]: Irlanda Ramirez DEPT: IMMUNOHISTOCHEMISTRY RECD BY: Morgan Whitt ENTERED: 04/26/23 10:44 SP TYPE: IMMUNO OTHR DR: Dr. Diandra Curry MD Tissues: Stomach, NOS Procedures: H Pylori (initial) PHYSICIAN & INSTITUTION [place] [address] SPECIMEN INFORMATION: Tissue Source: B - Antral biopsy Clinical Info: Positive celiac panel Specimen Number: [id number] CPT code: 10604 METHODOLOGY: Deparaffinized sections of prefer/formalin-fixed tissue or PAP/DQ stained slides are incubated with monoclonal/polyclonal antibodies/oligonucleotide probes. Localization is made via biotin free immunoperoxidase method. Appropriate controls are performed and reacted as expected. Results on target cell population are indicated in the following table: RESULTS: ANTIBODY / CLONE RESULT Block B H Pylori (polyclonal) negative These tests were developed and their performance characteristics determined by [facility]. They may not have been cleared or approved by the [place] Food and Drug Administration. The FDA has determined that such clearance or approval is not necessary. The above immunohistochemical/dualISH markers are ordered and reviewed by the Pathologist. INTERPRETATION: B. Antral biopsy: Negative for Helicobacter pylori organisms. AM:kelly 04/27/2023
--- NOTE | 2023-04-23 12:11 | GASB_PTH ---
PATHOLOGY RESULTS PATIENT: LAUREN PARSONS [facility] U#:[id number] AGE/SX: 32/F ROOM: RE04/23/[address]: Dr. Irlanda Ramirez MD : 1990 BED: DIS: 04/23/2023 SPEC #: [id number] RECD: 04/23/23 15:13 STATUS: GEOVANNA REQ #: [id number] LEIGHANN: 04/23/23 12:[address]: Irlanda Ramirez DEPT: SURGICAL PATHOLOGY RECD BY: Patrci Sorensen ENTERED: 04/26/23 09:33 SP TYPE: Gastric Bx OTHR DR: Dr. Diandra Curry MD Tissues: Duodenum, NOS Gastric mucous membrane Procedures: Surgery Specimen Level IV HEADER OPERATION: Upper Scope PRE-OP DIAGNOSIS: Positive Celiac Panel TISSUE SUBMITTED: A- third portion of duodenal biopsy, B Antral biopsy H/H, test for H. pylori MICROSCOPIC DIAGNOSIS A. Third portion of duodenum biopsy; No pathologic change. B. Gastric antrum, biopsy; Chronic gastritis. See comment. AM/mr 04/27/23 COMMENT B. The results of immunohistochemistry for Helicobacter pylori will be reported separately ([id number]). MICROSCOPIC DESCRIPTION Slides are reviewed. GROSS DESCRIPTION A- Received in fixative is one container labeled with the patient's name and designated duodenal biopsy. The specimen consists of multiple irregular fragments of light mendoza soft tissue that in aggregate measure 1.0 x 0.3 x 0.1 cm. The specimen is totally submitted in one cassette. B-Received in fixative is one container labeled with the patient's name and designated antral biopsy. The specimen consists of two irregular fragments of light mendoza soft tissue that in aggregate measure 0.5 x 0.5 x 0.1 cm. The specimen is totally submitted in one cassette./AM; mr 04/26/23 TC;3 CPT: 55214z7
== END | disposition home or self-care (01) ==
LOC: LABSPEC 15:16
PROVIDERS: PCP Internal Medicine; Referring Provider Surgery; Visit Provider Surgery
DX: K29.50 Unspecified chronic gastritis without bleeding (principal)
CPT/HCPCS: 88305; 88342

== ENCOUNTER 2024-01-26 09:49 | Outpatient (CLI) | payer OTHER, SELFPAY | END 2024-01-26 23:59 | disposition home or self-care (01) | LOC: BWCLAB 09:49 | PROVIDERS: PCP Internal Medicine; Referring Provider Obstetrics & Gynecology; Visit Provider Obstetrics & Gynecology | DX: N60.11 Diffuse cystic mastopathy of right breast (principal); Z80.3 Family history of malignant neoplasm of breast; N60.12 Diffuse cystic mastopathy of left breast | CPT/HCPCS: 36415 ==